=== PATIENT | female | born 1955 | race Caucasian/White ===

== ENCOUNTER 2019-12-18 07:57 | Outpatient (CLI) | payer MEDICARE, SELFPAY ==
--- NOTE | 2019-12-18 08:00 | MM_ITS ---
WS: [id number] SCREENING DIGITAL MAMMOGRAM WITH CAD HISTORY: screening mammogram COMPARISON: None available. Bilateral CC and MLO views submitted. Computer aided detection analyzed. Breast composition: There are scattered areas of fibroglandular density. Subcentimeter masses in the upper outer quadrant of the LEFT breast. Anterior mass measures 6 mm along the 3:00 axis. More analog device designer ior mass measures 5 mm and contains a central calcification near 2:00. No prior studies for compariso n. Palpable marker is placed along the medial inferior RIGHT breast which is probably secondary to under lying lipoma. No underlying mass. LEFT breast: Spot compression views (CC and MLO). True ML. Ultrasound to follow if abnormality jean pierre hitchcock. MM/[place] [id number] IMPRESSION: BI-RADS: 0-Incomplete: Need additional imaging evaluation FOLLOW UP: Need Additional Imaging
== END 2019-12-18 07:58 | disposition home or self-care (01) ==
LOC: RADSHAW 08:03
PROVIDERS: Family Provider Family Medicine; PCP Family Medicine; Visit Provider Family Medicine
DX: Z12.31 Encounter for screening mammogram for malignant neoplasm of breast (principal)
CPT/HCPCS: 77067

== ENCOUNTER 2020-01-10 10:47 | Outpatient (CLI) | payer MEDICARE, SELFPAY ==
--- NOTE | 2020-01-10 11:30 | MM_ITS ---
WS: [id number] BILATERAL DIAGNOSTIC DIGITAL MAMMOGRAM WITH CAD LEFT breast ultrasound, limited HISTORY: Additional imaging needed of asymmetries in the LEFT breast and a palpable nodule RIGHT [facility] COMPARISON: 6 12/18/2019 Technique: CC, MLO and ML views. Bilateral CC views and LEFT MLO. Breast composition: There are scattered areas of fibroglandular density. There is no underlying abno rmality in the RIGHT breast near 9:00. The asymmetries persist in the upper outer quadrant of the LEFT breast both anterior and middle depth . The anterior asymmetry is slightly irregular measuring 6 mm. Ill-defined asymmetry in the mid breas t may be dense fibroglandular tissue. Bilateral breast ultrasound. RIGHT breast: At 3:00 there is no underlying suspicious mass. There is a hyperechoic mass which corre sponds to the palpable abnormality measuring 2.7 x 2.8 x 1.0 cm most consistent with a benign lipoma. LEFT breast: LEFT breast 3:00, 2 cm from the nipple is a hypoechoic mass which is taller than wide wi th angular margins measuring 6 x 7 x 7 mm. No increased vascularity. There is an additional complex cyst at 2:00, one centimeters from the nipple with a maximum diameter of 3 mm. There are a few scattered hyperechoic nodules at 4:00 which are benign lipomas. 1. Ultrasound-guided biopsy recommended of the LEFT breast mass at 3:00, 2 cm from the nipple. 2. Benign lipoma RIGHT breast. MM/[place] [id number] IMPRESSION: BI-RADS: 4B-Suspicious: Intermediate FOLLOW UP: Biopsy Recommended
--- NOTE | 2020-01-10 12:00 | US_ITS ---
WS: [id number] BILATERAL DIAGNOSTIC DIGITAL MAMMOGRAM WITH CAD LEFT breast ultrasound, limited HISTORY: Additional imaging needed of asymmetries in the LEFT breast and a palpable nodule RIGHT [facility] COMPARISON: 6 12/18/2019 Technique: CC, MLO and ML views. Bilateral CC views and LEFT MLO. Breast composition: There are scattered areas of fibroglandular density. There is no underlying abno rmality in the RIGHT breast near 9:00. The asymmetries persist in the upper outer quadrant of the LEFT breast both anterior and middle depth . The anterior asymmetry is slightly irregular measuring 6 mm. Ill-defined asymmetry in the mid breas t may be dense fibroglandular tissue. Bilateral breast ultrasound. RIGHT breast: At 3:00 there is no underlying suspicious mass. There is a hyperechoic mass which corre sponds to the palpable abnormality measuring 2.7 x 2.8 x 1.0 cm most consistent with a benign lipoma. LEFT breast: LEFT breast 3:00, 2 cm from the nipple is a hypoechoic mass which is taller than wide wi th angular margins measuring 6 x 7 x 7 mm. No increased vascularity. There is an additional complex cyst at 2:00, one centimeters from the nipple with a maximum diameter of 3 mm. There are a few scattered hyperechoic nodules at 4:00 which are benign lipomas. 1. Ultrasound-guided biopsy recommended of the LEFT breast mass at 3:00, 2 cm from the nipple. 2. Benign lipoma RIGHT breast. US/US breast BI limited* [id number] IMPRESSION: BI-RADS: 4B-Suspicious: Intermediate FOLLOW UP: Biopsy Recommended
== END 2020-01-10 10:48 | disposition home or self-care (01) ==
LOC: RADSHAW 10:51
PROVIDERS: PCP Family Medicine; Visit Provider Family Medicine
DX: R92.8 Other abnormal and inconclusive findings on diagnostic imaging of breast (principal); N63.25 Unspecified lump in the left breast, overlapping quadrants; D17.79 Benign lipomatous neoplasm of other sites
CPT/HCPCS: 76642; 77065; 77066

== ENCOUNTER 2020-01-22 07:17 | Outpatient (CLI) | payer MEDICARE, SELFPAY ==
--- NOTE | 2020-01-22 08:00 | US_ITS ---
WS: [id number] ULTRASOUND-GUIDED LEFT BREAST BIOPSY HISTORY: LEFT breast lesion. COMPARISON: 01/10/2020 and 12/18/2019 Procedure, risks and complications are explained to the patient. Medications are reviewed. Consent is obtained. The mass in the LEFT breast is localized with ultrasound. Mass at 3:00, 2 cm from the nipple measures 6 x 7 x 7 mm. Skin is cleansed with ChloraPrep and anesthetized with 1% buffered lidocaine. Small de rmatome is made. Under sterile conditions mass is biopsied with a 14-gauge Achieve needle. Multiple c ore biopsies are performed. Material placed in formalin and sent to pathology for review. No complica tions encountered. Breast tissue marker (Bard ultrasound enhanced ribbon): Single. Patient left the radiology suite with no complications. [place] is [place] [facility] [place] [facility] concerns. US/[place] [id number] IMPRESSION: 1. Uncomplicated core needle biopsy LEFT breast. 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 Breast prognostic profile will be obtained. RECOMMENDATION: Surgical and oncologic evaluation.
--- NOTE | 2020-01-22 09:06 | PM.HP ---
Providers/Chief Complaint Primary Care Provider: Lexi Granda DO Chief Complaint: Abnormal mammogram of left breast History of Present Illness Shannon Henderson is a 64 year old female that presents today for breast biopsy of the left breast mass. Patient reports that she is feeling well, no recent illness. She stated that she follows with her primary care provider, no recent medication changes. Patient denies any fever or chills, no cough, shortness of breath, chest pain. She denies any exposure to anyone under investigation are positive for COVID-19. Patient denies being on any blood thinners or antiplatelet medications. Review of Systems Const: Denies: fever(s) or chills Eyes: Denies: change in vision Card: Denies: chest pain, palpitations or edema Resp: Denies: dyspnea, productive cough or hemoptysis GI: Denies: abdominal pain, nausea, vomiting, diarrhea, constipation, hematochezia or melena : Denies: dysuria or hematuria Musc: Denies: extremity pain or muscle cramps Skin/Breast: Denies: rash or new lesions Neuro: Denies: headache(s) or dizziness Endo: Denies: polyuria Medications/Allergies Home Medications Medication Instructions Recorded Confirmed Last Taken Type lisinopril 20 1 tab PO DAILY tab 08/17/19 11/20/19 Unknown History mg-hydrochlorothiazide 25 mg tablet omega-3 fatty acids 1,000 mg 2,000 mg PO BID 08/17/19 11/20/19 Unknown History capsule potassium chloride 10 mEq 20 meq PO BID tab 08/17/19 11/20/19 Unknown History tablet,extended release celecoxib 200 mg capsule 200 mg PO DAILY #90 cap 11/13/19 11/20/19 Unknown Rx furosemide 40 mg tablet 40 mg PO BID #180 tab 11/13/19 11/20/19 Unknown Rx lorazepam 0.5 mg tablet 0.5 mg PO BID PRN #180 tab 11/13/19 11/20/19 Unknown Rx metformin 1,000 mg tablet,extended 1,000 mg PO BID #180 tab 11/13/19 11/20/19 Unknown Rx release 24hr sitagliptin 100 mg tablet 100 mg PO DAILY #90 tab 11/20/19 11/20/19 Unknown Rx atorvastatin 20 mg tablet 20 mg PO DAILY #30 tab 12/24/19 Unknown Rx paroxetine HCl 20 mg tablet 20 mg PO DAILY #30 tab 12/24/19 Unknown Rx Allergies Allergy/AdvReac Type Severity Reaction Status Date / Time No Known Allergies Allergy Verified 09/27/19 09:04 PFSH Acute PFSH: Medical History Anxiety Anxiety and depression Controlled type 2 diabetes mellitus, without long-term current use of insulin DVT of lower extremity (deep venous thrombosis) Dyslipidemia Enrolled in chronic care management Essential (primary) hypertension GERD (gastroesophageal reflux disease) History of colon polyps Osteoarthritis Surgical History H/O carpal tunnel repair H/O: hysterectomy History of cholecystectomy History of colonoscopy with polypectomy (~2017) Family History Sister Cancer colon cancer Mother Diabetes Hypertension Father COPD (chronic obstructive pulmonary disease) Denies family history of Anesthesia complication Bleeding disorder Social History Smoking and tobacco status: never smoked Second hand smoke exposure: No Alcohol intake: current Alcohol intake frequency: holidays/special occasions only Desire information about alcohol rehabilitation?: No Desire information about substance/drug rehabilitation?: No Adopted: No Caregiver/support person: Yes Lives independently: Yes Household members: spouse Housing: House Marital status: Highest education level completed: High School Graduate service: No Current occupational status: retired Current occupational exposures/hazards: No Pets and animals: No History of recent travel: No Sexually active: No Current gender identity: Female Lacey/Restorationist: Alevism Special lacey needs: No Agree to transfusion: No Financial difficulty paying for basics: Decline to Answer Physical Exam Const: COMMON NORMALS: patient oriented x3 and alert GENERAL APPEARANCE: cooperative ORIENTATION/CONSCIOUSNESS: Yes awake, Yes oriented to person, Yes oriented to place and Yes oriented to time HENMT: COMMON NORMALS: normocephalic and atraumatic HEAD & SCALP: normocephalic and atraumatic Eye: COMMON NORMALS: Equal, round and reactive pupils present PUPIL: Yes Equal, round and reactive pupils present Neck/C-Spine: COMMON NORMALS: supple GENERAL: Yes normal visual inspection Resp: COMMON NORMALS: normal respiratory effort and clear to auscultation bilaterally EFFORT & INSPECTION: Yes able to speak in complete sentences AUSCULTATION: clear to auscultation bilaterally, no rhonchi and no wheezes Cardio: COMMON NORMALS: regular rate, regular rhythm and No murmurs present (Cardio) RATE: regular rate RHYTHM: regular rhythm GI: COMMON NORMALS: Soft to palpation and non-tender INSPECTION: No abdominal distension AUSCULTATION: Yes normoactive bowel sounds PALPATION: Yes Soft to palpation OTHER: obese Extremity: COMMON NORMALS: no clubbing, cyanosis or edema and no calf tenderness Neuro: COMMON NORMALS: patient oriented x3, CN's II-XII intact bilaterally, moves all extremities and no focal motor deficits SENSORIUM/ORIENTATION: Yes alert, Yes oriented to person, Yes oriented to place and Yes oriented to time SPEECH: speech normal Psych: COMMON NORMALS: mental status grossly normal and cooperative Skin: COMMON NORMALS: no rashes or lesions noted GENERAL SKIN EXAM: no rashes or lesions noted A&P Assessment and plan (1) Breast mass: Patient with breast ultrasound performed on 01/10/2020 which shows 1. Ultrasound-guided biopsy recommended of the LEFT breast mass at 3:00, 2 cm from the nipple. 2. Benign lipoma RIGHT breast. Plan for ultrasound-guided biopsy of the left breast today with Dr. Arceo. Status: Acute Attestations Medical Necessity Statement*: Patient requires ultrasound guided biopsy of the left breast due to abnormal breast ultrasound and mammogram Coding Level of Care Code Acute Log Turner for Aisha Rubi Diagnoses Breast mass N63.0
[2020-02-12 16:06] LABS: Miscellaneous Test See Scanned Lab Rpt
== END 2020-01-22 07:18 | disposition home or self-care (01) ==
LOC: RAD 07:18
PROVIDERS: PCP Family Medicine; Visit Provider Family Medicine
DX: N64.89 Other specified disorders of breast (principal); C50.812 Malignant neoplasm of overlapping sites of left female breast
CPT/HCPCS: 12345; 19083; 88305; J2001

== ENCOUNTER 2020-02-05 07:06 | Day surgery (SDC) | payer MEDICARE, SELFPAY ==
[2020-02-04 13:59] VITALS: BMI 37.1
[2020-02-05] VITALS (8 sets, daily range): BP systolic 97–131; BP diastolic 50–76; PULSE 63–87; RESP 15–20; TEMP 36.4–36.7; O2SAT 91–96
--- NOTE | 2020-02-05 | US_ITS ---
WS: [id number] ULTRASOUND-GUIDED LEFT BREAST NEEDLE LOCALIZATION HISTORY: LEFT BREAST MASS Procedure, risks and complications were explained to the patient. Consent is obtained. Skin is cleansed with ChloraPrep and anesthetized with 1% buffered lidocaine. Needle and guidewire pl aced to the area of concern with no complications. Ultrasound guidance performed during the needle lo calization. Guidewire is left within the lesion. Guidewire secured and no complications encountered. Patient is being transported to the OR suite. Specimen radiograph is also reviewed. Breast mass is present. 1. Uncomplicated wire localization of the mass at 3:00 LEFT breast. 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 T umor approaches within 1 mm of the superior margin. Please refer to the pathology report for addition al details. RECOMMENDATIONS: Follow-up with surgery and oncology. US/US breast surgical specimen IMPRESSION:
[2020-02-05] MEDS: sodium chloride 0.9% 1,000 ML 30 ML IV (07:32)
--- NOTE | 2020-02-05 07:53 | P.ANESASSM_ITS ---
Pre-Anesthetic Assessment Pre-Anesthetic Assessment: Height/Weight: Height 1.68 m Weight 104.326 kg Temp Pulse Resp BP Pulse Ox 97.5 F L 63 18 131/76 95 02/05/20 07:23 02/05/20 07:23 02/05/20 07:23 02/05/20 07:23 02/05/20 07:23 Preop Diagnosis: Left breast cancer Proposed Procedure: Operation Date: 02/05/20 10:05 Proposed Procedures p Sentinal Lymph Node Biopsy(Left) - Joey Vizcaino MD s Lumpectomy 85155 [id number] C50.919(Left) - Joey Vizcaino MD Familial anesthetic complications: None Was Beta Anjana taken within 24 hours: N/A Last intake: Intake Last Liquid Date 02/04/20 Last Liquid Time 18:00 Last Solid Date 02/04/20 Last Solid Time 18:00 Social: Social History: No alcohol and No tobacco Exam: Pre-Anes Outpt Exam: alert, oriented x 3, clear to auscultation bilaterally and regular rate & rhythm Airway: Cervical ROM: WNL MP: 3 Additional comments: missing Pulmonary: Pulmonary: None reported CV/HEM: CV/HEM: HTN : : None reported Hepatic: Hepatic: None reported Metabolic: Metabolic: DM, Hyperlipidemia and Morbid obesity Musc/skel: Musc/skel: None reported Neuropsych: Neuropsych: None reported Anesthetic Plan: ASA status: 2 Anesthesia: MAC Risk of > 500 ml blood loss (7ml/kg in children): No Meds/Allergies Current Medications: Current Medications Generic Name Dose Route Start Last Admin Trade Name Freq PRN Reason Stop Dose Admin Sodium Chloride 1,000 mls @ 30 ml s/hr 02/05/20 06:45 02/05/20 07:32 Sodium Chloride 0.9% IV 02/06/20 06:44 30 mls/hr .Q24H RENEE Administration PFSH Anesthesia PFSH: Medical History Anxiety Anxiety and depression Controlled type 2 diabetes mellitus, without long-term current use of insulin DVT of lower extremity (deep venous thrombosis) Dyslipidemia Enrolled in chronic care management Essential (primary) hypertension GERD (gastroesophageal reflux disease) History of colon polyps Osteoarthritis Surgical History H/O carpal tunnel repair H/O: hysterectomy History of cholecystectomy History of colonoscopy with polypectomy (~2017) Family History Sister Cancer colon cancer Mother Diabetes Hypertension Father COPD (chronic obstructive pulmonary disease) Denies family history of Anesthesia complication Bleeding disorder Social History Smoking and tobacco status: never smoked Second hand smoke exposure: No Alcohol intake: current Alcohol intake frequency: holidays/special occasions only Desire information about alcohol rehabilitation?: No Desire information about substance/drug rehabilitation?: No Adopted: No Caregiver/support person: Yes Lives independently: Yes Household members: spouse Housing: House Marital status: Highest education level completed: High School Graduate service: No Current occupational status: retired Current occupational exposures/hazards: No Pets and animals: No History of recent travel: No Sexually active: No Current gender identity: Female Lacey/Oriental Orthodox: Adventism Special lacey needs: No Agree to transfusion: No Financial difficulty paying for basics: Decline to Answer Data Anesthesia Cardiac Studies: No Data to Display
--- NOTE | 2020-02-05 08:00 | US_ITS ---
WS: [id number] ULTRASOUND-GUIDED LEFT BREAST NEEDLE LOCALIZATION HISTORY: LEFT BREAST MASS Procedure, risks and complications were explained to the patient. Consent is obtained. Skin is cleansed with ChloraPrep and anesthetized with 1% buffered lidocaine. Needle and guidewire pl aced to the area of concern with no complications. Ultrasound guidance performed during the needle lo calization. Guidewire is left within the lesion. Guidewire secured and no complications encountered. Patient is being transported to the OR suite. Specimen radiograph is also reviewed. Breast mass is present. 1. Uncomplicated wire localization of the mass at 3:00 LEFT breast. 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 T umor approaches within 1 mm of the superior margin. Please refer to the pathology report for addition al details. RECOMMENDATIONS: Follow-up with surgery and oncology. US/[place] [id number] IMPRESSION:
--- NOTE | 2020-02-05 08:37 | NM_ITS ---
WS: [id number] NUCLEAR MEDICINE SENTINEL LYMPH NODE IMAGING HISTORY: LEFT breast neoplasm. COMPARISON: None available. TECHNIQUE: The patient was injected with 1.01 mCi of Technetium 99 ultra filtered sulfur colloid. Inj ection is intradermal in a periareolar location. Four aliquots are used. NM/NM sentinel node inject [id number] IMPRESSION: Uncomplicated LEFT breast sentinel node injection.
--- NOTE | 2020-02-05 09:22 | W.PM.OPSUD ---
Surgery/Procedure H&P Update DATE OF PROCEDURE: February 05, 2020 DATE H&P PERFORMED: 01/31/20 H&P UPDATE INFORMATION: I have reviewed H&P completed within last 30 days, I have examined patient prior to procedure and No changes to prior documentation PREOP DIAGNOSIS: Left breast cancer PLANNED PROCEDURE: Operation Date: 02/05/20 10:05 Proposed Procedures p Sentinal Lymph Node Biopsy(Left) - Joey Vizcaino MD s Lumpectomy [id number] C50.919(Left) - Joey Vizcaino MD
[2020-02-05] MEDS: lidocaine 1% INJ 20 mL INJECTION (10:47)
[2020-02-05] MEDS: isosulfan blue 10 mg/mL SDV 5mL SUBCUT (10:51)
--- NOTE | 2020-02-05 12:12 | SUR.PHASEI ---
1200 PATIENT TO PACU. ORAL AIRWAY IN PLACE. SPO2 94% ON SIMPLE MASK AT 8L. DRESSING TO LEFT BREAST, CDI WITH SURGICAL BRA IN PLACE.
--- NOTE | 2020-02-05 12:12 | P.OP_ITS ---
Operative Report Date of procedure: February 05, 2020 Pre-op Diagnosis: Invasive ductal adenocarcinoma left breast 2 o'clock position Post-op diagnosis: same Procedure Done: Wire localized partial mastectomy left breast Injection of 1% Lymphazurin for sentinel lymph node mapping [place] lymph node biopsy Specimens removed/disposition: Left breast mass 2 o'clock position, superior, inferior, posterior and medial shave margins, outer edge inked Left axilla sentinel lymph node biopsy Surgeon: Joey Vizcaino Anesthesia: General Estimated blood loss (mL): 25 Condition: stable Disposition: PACU Procedure: The wire localization of the mammographic abnormality was performed by the radiologist under ultrasound guidance and the patient was transferred to operating room and placed under MAC after IV antibiotic had been administered. The left breast was prepped and draped in a manner . A curvilinear incision was made over the areolar margin at 2'o clock position inferior to the marking over the mammographic abnormality, subcutaneous tissue was divided and skin flaps were raised medially and laterally. The localization wire was grasped through the incision and using electrocautery the wire along with the breast tissue c ontaining mammographic abnormality was dissected free from the surrounding tissue. Using 2-0 silk suture, short stitch was placed superiorly and a long stitch was placed laterally.1 cm shave margins were then obtained from the superior, inferior, medial and posterior aspect of the lumpectomy cavity and the outer edge was inked. The breast tissue was mobilized from the superior and inferior aspect of the lumpectomy cavity to close the defect. A technetium sulfur colloid had been injected previously by the radiologist in the periareolar area. 5 mL of 1% Lymphazurin was injected in the subareolar location. The breast was massaged for 5 minutes and a 2 cm incision was made in the left axilla at the edge of the hairline. The subcutaneous tissue and clavipectoral fascia was divided with electrocautery and gentle dissection revealed lymphatics with stained lymph nodes with significant radioactivity. Using electrocautery the lymph nodes were dissected free. Examination of the axilla did not reveal any other radioactive lymph nodes. The clavipectoral and subcutaneous tissue was approximated using running 3-0 Vicryl suture and skin was closed using running subcuticular 4-0 Monocryl suture and Dermabond. The wounds were irrigated with saline, hemostasis ensured with electrocautery and subcutaneous tissues approximated using 3-0 running Vicryl suture and skin was closed using running subcuticular 4-0 Monocryl sutures and Dermabond. 30 cc of .5% Marcaine was infiltrated at the 2 sites. Fluffs were used for pressure dressing. Patient was transferred to recovery room and stable condition The lumpectomy specimens were sent to mammography to obtain radiological confirmation of complete excision of the mammographic abnormality.
--- NOTE | 2020-02-05 12:12 | SUR.PHASEI ---
1210 ORAL AIRWAY REMOVED AT THIS TIME. SPO2 95% ON SIMPLE MASK AT 8L.
--- NOTE | 2020-02-05 12:33 | SUR.PHASEI ---
1230 TO OPS. DENIES PAIN. TOLERATING ICE CHIPS. DRESSING TO LEFT BREAST, CDI WITH SURGICAL/SUPPORT BRA IN PLACE.
[2020-02-05] MEDS: HYDROcodone-acetaminophen 5-325 mg Tablet 1 TAB PO (12:55)
== END 2020-02-05 13:13 | disposition home or self-care (01) ==
PROVIDERS: PCP Family Medicine; Visit Provider Surgery
PROC: (CPT 19301; principal; 2020-02-05 10:05)
PROC: (CPT 19301; 2020-02-05 10:05)
DX: C50.412 Malignant neoplasm of upper-outer quadrant of left female breast (principal); F41.9 Anxiety disorder, unspecified; F32.9 Major depressive disorder, single episode, unspecified; E11.9 Type 2 diabetes mellitus without complications; Z86.718 Personal history of other venous thrombosis and embolism; I10 Essential (primary) hypertension; E78.5 Hyperlipidemia, unspecified; E66.01 Morbid (severe) obesity due to excess calories; Z68.37 Body mass index [BMI] 37.0-37.9, adult; M19.90 Unspecified osteoarthritis, unspecified site
CPT/HCPCS: 19301; 38525; 12345; 19285; 38792; 88305; A9541; J1100; J2001; J2405; J2704; J3010; J3490; J7030; Q9968

== ENCOUNTER 2020-02-11 11:41 | Outpatient (CLI) | payer MEDICARE, SELFPAY ==
--- NOTE | 2020-02-11 14:02 | ONC CON_ITS ---
Dr. Chapman New Patient Note Patient: Shannon Henderson Unit #: [id number]: 1955 Dicatated By: Gucci Chapman M.D.Date of Visit: Feb 11, 2020 Onc MED New Patient/Consult Referring Physician: Dr. DEANDRE LANZA M.D. History of Present Illness: Ms. Shannon Henderson, is a 64-year-old female who underwent mammogram for right breast palpable mass on December 18, 2019 and the impression was on the right side medial inferior breast mass was probably due to lipoma as no underlying mass was identified but there was incidental finding in the left breast there was a subcentimeter mass in the upper quadrant of left breast anterior mass measures 6 mm in the posterior mass measured 5 mm and contains central calcification. Patient underwent repeat mammogram/ultrasound on January 10, 2020 which confirmed benign lipoma right side and in left breast at 3 o'clock position, 2 cm from nipple is a hypoechoic mass measuring 6 x 7 x 7 mm subsequently patient underwent ultrasound-guided needle biopsy on January 23, 2020 which confirmed invasive carcinoma ER HI positive HER-2/neeraj negative with a Ki-67 14%. Patient was referred to surgery and underwent left breast lumpectomy on February 05, 2020 which showed residual tumor size 0.9 cm tumor is free of margin but approaches within 1 mm of superior margin. pT1b 3 left axillary sentinel lymph nodes were removed and showed no evidence of metastatic disease pN0 Patient tolerated procedure well Patient denies any specific complaints with denies any fever chills denies any nipple discharge denies any tenderness in left breast. Has follow-up appointment with Dr. Lanza today. Past medical history significant for anxiety/depression, controlled type 2 diabetes mellitus, DVT of lower extremity. Dyslipidemia. Essential hypertension. Gastroesophageal reflux disease. Osteoarthritis. Status post colonoscopy with polypectomy in 2017., History of hysterectomy. No history of smoking. Occasional alcohol use. Patient never had abnormal mammogram before. But last year she missed her follow-up mammogram, family history positive for paternal aunt with history of breast cancer. History of oral contraceptive for a few years. Patient had 3 pregnancies, 3 live births, 2 boys and 1 girl. No history of breast-feeding. Past Medical History: Ms. Henderson's medical history consists of anxiety, depression, dyslipidemia, gastroesophageal reflux disease, history of colon polyps, history of dvt, hypertension, osteoarthritis, and type II diabetes. Past Surgical History: Ms. Henderson's surgical/procedural history consists of breast biopsy, carpal tunnel release, cholecystectomy, hysterectomy, left breast lumpectomy, and colonoscopy in 2017. Medications: Atorvastatin Calcium 1 Tablet (of 20 mg) Oral daily, Celecoxib 1 Capsule (of 200 mg) Oral daily, Docusate Sodium 1 Tablet (of 100 mg) Oral b.i.d., Furosemide 1 Tablet (of 20 mg) Oral b.i.d., Januvia 1 Tablet (of 100 mg) Oral daily, Klor-Con 10 1 Tablet (of 10 meq) Tablet, controlled release Oral daily, Lisinopril-hydroCHLOROthiazide 1 Tablet (of 20-25 mg) Oral daily, LORazepam 1 Tablet (of 0.5 mg) Oral b.i.d., Meloxicam 1 Tablet (of 15 mg) Oral daily, metFORMIN HCl 1 Tablet (of 1000 mg) Oral b.i.d., Ondansetron HCl 1 Tablet (of 4 mg) Oral q 6 hours, PARoxetine HCl 1 Tablet (of 20 mg) Oral daily Allergies: No Known Allergies. Social History: Ms. Henderson is and she is an unknown. Ms. Henderson has never smoked. She has no history of drinking. Family History: There is no documented family history. Review Of Symptoms: Review of Systems is not available for this patient. Vital Signs: Performed on Feb 11, 2020 12:57: 0, 38.38 (HIGH), 2.05 sq.m, 64.00 in, 94 % (LOW), 70 /min, 24 /min, 132/73 mm(hg), 98.6 F, and 223.6 lbs (HIGH). Performance Status: 0 - Fully active, able to carry on all predisease activities without restrictions. (ECOG) Physical Examination: ENMT - No mouth sores, no thrush, no jaundice, Respiratory - Lungs are clear, Cardiovascular - Regular rate and rhythm of heart, Abdomen - Soft, bowel sounds present, Extremities - No edema or rash. Lab/Imaging: Most recent lab results are not available for this patient. 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, involving left breast status post ultrasound-guided biopsy done on January 23, 2020 followed by left breast lumpectomy with sentinel lymph node biopsy final pathology report showed 0.9 cm invasive tumor with clear margins but approaches within 1 mm of superior margin, no lymphovascular invasion seen pT1b, 0 out of 3 sentinel lymph node showed metastatic disease pN0 Stage IA ER 95% positive, HI 99% positive, HER-2/neeraj negative, Ki-67 14% H History of lower extremity DVT Dyslipidemia Hypertension Type 2 diabetes mellitus Anxiety/depression Plan: Discussed with patient regarding her disease status and treatment options, patient has early stage left breast cancer Stage IA e.g. subcentimeter invasive tumor with negative sentinel lymph nodes, ER HI positive, HER-2/neeraj negative. But high Ki-67 score At this point, will consider prognostic molecular profiling with Oncotype DX score, if it shows low risk then will continue with Arimidex 1 mg p.o. daily for 5 years along with vitamin D and calcium, all the side effects including but not limited to hot flashes, musculoskeletal pain, nausea, bone demineralization, were mentioned further teaching done by chemotherapy nurse. She was given prescription for Arimidex 1 mg p.o. daily for 5 years along with vitamin D/calcium supplement On the other hand, if Oncotype DX score shows high risk ,then I will discuss with her regarding role of adjuvant chemotherapy followed by adjuvant hormonal therapy for 5 years. We will also refer her to radiation oncology for evaluation for postlumpectomy radiation therapy to the left breast Patient return to clinic in 1 month with CBC CMP and to discuss her Oncotype DX score results Signed By: Gucci Chapman M.D. <<Signature on File>>
== END 2020-02-11 11:42 | disposition home or self-care (01) ==
LOC: ONCMED 11:48
PROVIDERS: PCP Family Medicine; Referring Provider Surgery; Visit Provider Internal Medicine Hematology & Oncology
DX: C50.812 Malignant neoplasm of overlapping sites of left female breast (principal); D17.1 Benign lipomatous neoplasm of skin and subcutaneous tissue of trunk; Z17.0 Estrogen receptor positive status [ER+]; E78.5 Hyperlipidemia, unspecified; I10 Essential (primary) hypertension; E11.9 Type 2 diabetes mellitus without complications; F41.8 Other specified anxiety disorders; Z86.718 Personal history of other venous thrombosis and embolism
CPT/HCPCS: 99203

== ENCOUNTER 2020-03-03 12:57 | Outpatient (CLI) | payer MEDICARE, SELFPAY ==
[2020-03-03 13:37] LABS: Basophils # 0.1 10^3/uL (0.0-0.1); Basophils % 0.6 %; Eosinophils # 0.3 10^3/uL (0.0-0.8); Eosinophils % 2.4 %; Hematocrit 46.1 % (37.0-47.0); Hemoglobin 14.3 g/dL (11.5-15.3); Lymphocytes # 5.1 10^3/uL (0.8-4.8); Lymphocytes % 46.6 %; Mean Corpuscular Hemoglobin 27.8 pg (28.0-34.0); Mean Corpuscular Volume 89.5 fL (81-99); Mean Platelet Volume 9.7 fL (7.4-10.4); Monocytes # 0.8 10^3/uL (0.2-0.9); Monocytes % 6.9 %; Neutrophils # 4.77 10^3/uL (1.8-7.7); Neutrophils % 43.3 %; Nucleated Red Blood Cells % 0 %; Platelet Count 408 10^3/cmm (130-400); Red Blood Count 5.15 10^6/uL (4.1-5.3); Red Cell Distribution Width 14.3 % (12.1-15.1)
[2020-03-03 13:46] LABS: Alanine Aminotransferase 39 U/L (0-33); Albumin Level 4.9 g/dL (3.5-5.2); Alkaline Phosphatase 83 IU/L (35-105); Anion Gap 16.3 (5-19); Aspartate Amino Transferase 29 U/L (0-32); Blood Urea Nitrogen 19 mg/dL (8-23); Calcium 11.2 mg/dL (8.5-10.5); Carbon Dioxide 29 mmol/L (22-29); Chloride 95 mmol/L (98-107); Globulin 3.5 g/dL (1.3-4.6); Glomerular Filtration Rate 55.8 mL/min (90-130); Glucose 136 mg/dL (65-115); Osmolality Calculated 283 mOsm/kg (285-295); Potassium 3.3 mmol/L (3.5-5.1); Sodium 137 mmol/L (136-145); Total Bilirubin 0.4 mg/dL (0.15-1.2); Total Protein 8.4 g/dL (6.6-8.7)
--- NOTE | 2020-03-03 14:55 | ONC FU_ITS ---
Dr. Chapman follow up note Patient: Shannon Henderson Unit #: [id number]: 1955 Dicatated By: Gucci Chapman M.D.Date of Visit:Mar 03, 2020 Onc Med Follow-up/Prog Note History of Present Illness: Ms. Shannon Henderson, is a 64-year-old female who underwent mammogram for right breast palpable mass on December 18, 2019 and the impression was on the right side medial inferior breast mass was probably due to lipoma as no underlying mass was identified but there was incidental finding in the left breast there was a subcentimeter mass in the upper quadrant of left breast anterior mass measures 6 mm in the posterior mass measured 5 mm and contains central calcification. Patient underwent repeat mammogram/ultrasound on January 10, 2020 which confirmed benign lipoma right side and in left breast at 3 o'clock position, 2 cm from nipple is a hypoechoic mass measuring 6 x 7 x 7 mm subsequently patient underwent ultrasound-guided needle biopsy on January 23, 2020 which confirmed invasive carcinoma ER NC positive HER-2/neeraj negative with a Ki-67 14%. Patient was referred to surgery and underwent left breast lumpectomy on February 05, 2020 which showed residual tumor size 0.9 cm tumor is free of margin but approaches within 1 mm of superior margin. pT1b 3 left axillary sentinel lymph nodes were removed and showed no evidence of metastatic disease pN0 Patient tolerated procedure well Patient denies any specific complaints with denies any fever chills denies any nipple discharge denies any tenderness in left breast. Has follow-up appointment with Dr. Vizcaino today. Past medical history significant for anxiety/depression, controlled type 2 diabetes mellitus, DVT of lower extremity. Dyslipidemia. Essential hypertension. Gastroesophageal reflux disease. Osteoarthritis. Status post colonoscopy with polypectomy in 2017., History of hysterectomy. No history of smoking. Occasional alcohol use. Patient never had abnormal mammogram before. But last year she missed her follow-up mammogram, family history positive for paternal aunt with history of breast cancer. History of oral contraceptive for a few years. Patient had 3 pregnancies, 3 live births, 2 boys and 1 girl. No history of breast-feeding. Came for follow-up, denies any specific complaints, except persistent left breast wound infection, now being treated by Dr. Vizcaino with antibiotics otherwise no fever chills, no nausea or vomiting, no diarrhea constipation, occasionally hot flashes and persistent mild arthritis in both hands but no worsening, tolerating Arimidex well otherwise. Her Oncotype DX was ordered earlier but slight with a minimum invasive tumor was sent by mistake so it was not done, as per discussion with pathology today other slides with sufficient tumor has been sent now for Oncotype DX testing. Patient has seen radiation oncology but radiation is awaiting surgical wound healing before starting radiation therapy. Medications: Arimidex 1 Tablet (of 1 mg) Oral daily, Atorvastatin Calcium 1 Tablet (of 20 mg) Oral daily, Celecoxib 1 Capsule (of 200 mg) Oral daily, Cephalexin 1 Capsule (of 500 mg) Oral daily, Docusate Sodium 1 Tablet (of 100 mg) Oral b.i.d., Furosemide 1 Tablet (of 20 mg) Oral b.i.d., Januvia 1 Tablet (of 100 mg) Oral daily, Klor-Con 10 1 Tablet (of 10 meq) Tablet, controlled release Oral daily, Lisinopril-hydroCHLOROthiazide 1 Tablet (of 20-25 mg) Oral daily, LORazepam 1 Tablet (of 0.5 mg) Oral b.i.d., Meloxicam 1 Tablet (of 15 mg) Oral daily, metFORMIN HCl 1 Tablet (of 1000 mg) Oral b.i.d., Ondansetron HCl 1 Tablet (of 4 mg) Oral q 6 hours, PARoxetine HCl 1 Tablet (of 20 mg) Oral daily Allergies: No Known Allergies. Review of Systems: Constitutional - Appetite is good and weight is stable. No fever, no hot flashes. Energy level is fair. Positive for occasional night sweats, ENMT - No sinus congestion/drainage. No mouth sores. No sore throat or difficulty swallowing, Hematologic/Lymphatic - No abnormal bruising or bleeding, Respiratory - Positive for shortness of breath. No cough. No pleuritic pain or hemoptysis, Cardiovascular - No angina pain. No palpitations, Gastrointestinal - No nausea or vomiting. No heartburn or acid reflux. No diarrhea. Positive for constipation. No blood in the stool or black stools, Genitourinary (F) - No dysuria or hematuria. No urinary frequency. No urgency. Positive for incontinence, Musculoskeletal - No joint or bone pain, Neurologic - No headache. Positive for dizziness. No numbness or tingling. No other focal neurologic symptoms, Psychiatric - Positive for depression and anxiety. Vital Signs: Performed on Mar 03, 2020 14:14 Height - 64.00 in Weight - 231.0 lbs (LOW) BSA - 2.08 sq.m BMI - 39.65 (HIGH) Temperature - 98.5 F Pulse - 82 /min Respiration - 24 /min BP - 144/79 mm(hg) (HIGH) O2 Sat - 97 % Pain - 0 Performance Status: 0 - Fully active, able to carry on all predisease activities without restrictions. (ECOG) Physical Examination: Respiratory - Lungs are clear, Cardiovascular - Regular rate and rhythm of heart, Gastrointestinal - Soft, bowel sounds present, Extremities - No visible edema. Lab/Imaging: Most recent lab results are not available for this patient. 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, involving left breast status post ultrasound-guided biopsy done on January 23, 2020 followed by left breast lumpectomy with sentinel lymph node biopsy final pathology report showed 0.9 cm invasive tumor with clear margins but approaches within 1 mm of superior margin, no lymphovascular invasion seen pT1b, 0 out of 3 sentinel lymph node showed metastatic disease pN0 ER 95% positive, NC 99% positive, HER-2/neeraj negative, Ki-67 14% H History of lower extremity DVT Dyslipidemia Hypertension Type 2 diabetes mellitus Anxiety/depression Plan: Discussed with patient regarding her labs white blood count 11.0 hemoglobin 14.3 crit 46.1 platelets 408,000 CMP within normal limits except calcium 11.2 Clinically, patient is doing reasonably well tolerating Arimidex/vitamin D/calcium well but with expected side effects, e.g. occasional hot flashes no follow-up labs shows hypercalcemia, we will hold her calcium/vitamin D supplements and monitor labs Discussed with patient regarding Oncotype DX testing status, now slides with sufficient invasive tumor has been sent for testing, hopefully will have report back in next couple of weeks. Patient return to clinic in 2 weeks for discussion in the meantime continue with Arimidex Patient has follow-up with Dr. Vizcaino, surgeon regarding her surgical wound infection, on coming Monday, in the meantime she is on oral antibiotics. And patient was advised to stay in touch with radiation oncology. Signed By: Gucci Chapman M.D. <<Signature on File>>
== END 2020-03-03 12:58 | disposition home or self-care (01) ==
LOC: ONCMED 13:05
PROVIDERS: PCP Family Medicine; Visit Provider Internal Medicine Hematology & Oncology
DX: C50.812 Malignant neoplasm of overlapping sites of left female breast (principal); E78.5 Hyperlipidemia, unspecified; I10 Essential (primary) hypertension; E11.9 Type 2 diabetes mellitus without complications; F41.8 Other specified anxiety disorders; S21.002D Unspecified open wound of left breast, subsequent encounter; T81.89XD Other complications of procedures, not elsewhere classified, subsequent encounter; T81.49XD Infection following a procedure, other surgical site, subsequent encounter; Y83.8 Other surgical procedures as the cause of abnormal reaction of the patient, or of later complication, without mention of misadventure at the time of the procedure; Z79.811 Long term (current) use of aromatase inhibitors; Z17.0 Estrogen receptor positive status [ER+]; Z79.84 Long term (current) use of oral hypoglycemic drugs
CPT/HCPCS: 36415; 80053; 85025; 99214; G0277

== ENCOUNTER 2020-03-23 12:27 | Outpatient (CLI) | payer MEDICARE, SELFPAY ==
[2020-03-23 12:51] LABS: Basophils # 0.1 10^3/uL (0.0-0.1); Basophils % 0.8 %; Eosinophils # 0.2 10^3/uL (0.0-0.8); Eosinophils % 2.3 %; Hematocrit 43.3 % (37.0-47.0); Hemoglobin 13.1 g/dL (11.5-15.3); Lymphocytes % 45.9 %; Mean Corpuscular HGB Conc 30.3 g/dL (30.0-36.0); Mean Corpuscular Hemoglobin 28.1 pg (28.0-34.0); Mean Corpuscular Volume 92.7 fL (81-99); Mean Platelet Volume 9.7 fL (7.4-10.4); Monocytes # 0.5 10^3/uL (0.2-0.9); Neutrophils % 44.8 %; Nucleated Red Blood Cells % 0 %; Platelet Count 322 10^3/cmm (130-400); Red Blood Count 4.67 10^6/uL (4.1-5.3); Red Cell Distribution Width 14.3 % (12.1-15.1); White Blood Count 8.7 10^3/uL (4.0-10.0)
[2020-03-23 13:08] LABS: Alanine Aminotransferase 30 U/L (0-33); Albumin Level 4.5 g/dL (3.5-5.2); Alkaline Phosphatase 55 IU/L (35-105); Anion Gap 14.5 (5-19); Aspartate Amino Transferase 18 U/L (0-32); Blood Urea Nitrogen 20 mg/dL (8-23); Calcium 10.1 mg/dL (8.5-10.5); Carbon Dioxide 26 mmol/L (22-29); Chloride 101 mmol/L (98-107); Glucose 161 mg/dL (65-115); Osmolality Calculated 286 mOsm/kg (285-295); Potassium 3.5 mmol/L (3.5-5.1); Sodium 138 mmol/L (136-145); Total Bilirubin 0.4 mg/dL (0.15-1.2); Total Protein 7.5 g/dL (6.6-8.7)
--- NOTE | 2020-03-23 14:45 | ONCRAD EPV_ITS ---
Radiation Oncology Established Patient Visit Patient: Shannon Henderson [id number] : 1955 Age: 64 Sex: Female Dictated by: Dr. Zander Almeida Date of Service: 03/23/2020 Referring Physician(s) : Dr. Chapman Diagnosis: pT1b pN0 (0/3 LNs) M0 Grade 2 moderately differentiated ductal carcinoma with micropapillary pattern of the left breast at the 3 o'clock position, ER +95%, MO +99%, HER-2/neeraj negative, Ki-67 14%. She is status post lumpectomy and sentinel lymph node dissection (02/05/2020) with widely negative postsurgical margins, 0/3 involved lymph nodes, and the primary measured 0.9 cm. Oncotype DX testing revealed an insufficient amount of tissue to evaluate. The patient was offered a second opinion from a tertiary center by Dr Chapman, but the patient reportedly declined and shared that she would not accept chemotherapy even if it was offered. Therefore, the plan is for 42.56 Gy in 16 fractions to the left breast followed by a boost of 10 Gy in 4 fractions. Simulation will begin in two weeks to allow for further skin healing. The patient initiated Arimidex on 02/17/2020. Current History: The patient reports that she is healing well and she has no complaints with respect to her breast. She reports that she recently saw her surgeon who was also pleased with her wound healing. Current Medications: Arimidex, arimidex, atorvastatin Calcium, celecoxib, cephalexin, docusate Sodium, furosemide, januvia, klor-Con 10, lisinopril-hydroCHLOROthiazide, lORazepam, meloxicam, metFORMIN HCl, ondansetron HCl, pARoxetine HCl. Allergies: No Known Allergies Current Complaints / Review of Systems: Constitutional - Complains of fatigue which is mild and manageable and night sweats. Denies lack of appetite and fever. Cardiovascular - Denies chest pain and palpitations. Respiratory - Denies cough. Gastrointestinal - Denies constipation, diarrhea, nausea and vomiting. Genitourinary (F) - Denies dysuria, hematuria, incontinence, nocturia and urgency. Musculoskeletal - Complains of joint pain in her left hand which she states has been going on since before her cancer diagnosis. Neurologic - Denies dizziness and headaches. Psychiatric - Denies depression.. Vital Signs: Performed on 03/23/2020 1:09 PM Height - 64.00 in, Weight - 232.6 lbs (high), BSA - 2.09 sq.m, BMI - 39.93 (high), Temperature - 98.2 f (low), Pulse - 73 /min, Respiration - 24 /min, O2 Sat - 95 % (low), Pain - 0, BP - 126/ 77 mm(hg), Performed on 03/23/2020 1:44 PM Weight - 232.6 lbs, Temperature - 98.2 f, Pulse - 73, Respiration - 24, O2 Sat - 95 % (low), Pain - 0 and BP - 126/ 77 mm(hg). Physical Exam: General: Alert and oriented x 3. No acute distress. HEENT: Normocephalic, atraumatic. Extraocular Movements Intact: Pupils Equal, Round, Reactive to Light and Accommodation: Sclerae anicteric. Oral cavity is clear without lesions, masses or ulcers. NECK: Supple without supraclavicular or jugular lymphadenopathy. Breast: The left breast demonstrates a tiny wound healing defect in the inferior lumpectomy incision. It is estimated that another two weeks will be needed for further wound healing prior to initiating radiotherapy. LUNGS: Clear to auscultation bilaterally without rales, rhonchi or wheeze. HEART: Regular rate and rhythm, normal S1 and S2 without murmur, gallop or rub. MUSCULOSKELETAL: No tenderness or percussion pain over the axial skeleton, scapulae or pelvis. ABDOMEN: Soft, nontender, nondistended without masses or organomegaly. Bowell sounds are present. EXTREMITIES: No peripheral edema is identified. Limited motor and sensory examination are grossly intact and symmetric bilaterally. NEUROLOGIC: Cranial nerves II ???XII are grossly intact. Normal sensation, strength 5/5 in all extremities, normal gait, no ataxia. Performance Status: 0 - Fully active, able to carry on all predisease activities without restrictions. (ECOG) Lab: None pending. Test performed on 03/03/2020 1:12 PM WBC - 11.0 10 3/ul (high), MCH - 27.8 pg (low), Platelet Count - 408 10 3/cmm (high), Lymphocytes - 5.1 10 3/ul (high), Potassium - 3.3 mmol/l (low), Chloride - 95 mmol/l (low), Creatinine - 1.0 mg/dl (high), eGFR - 55.8 ml/min (low), Glucose - 136 mg/dl (high), Calcium - 11.2 mg/dl (high) and ALT (SGPT) - 39 u/l (high). Pathology: Primary, z17.0 - estrogen receptor positive status [er+], Diagnosed 02/11/2020 (active) and Primary, c50.812 - malignant neoplasm of overlapping sites of left female breast, Diagnosed 02/11/2020 (active). Imaging: See HPI Impression: The patient is a 64-year-old female with pT1b pN0 (0/3 sn) M0 Grade 2 moderately differentiated ductal carcinoma with micropapillary pattern of the left breast at the 3 o'clock position, ER +95%, MO +99%, HER-2/neeraj negative, Ki-67 14%. She was treated with lumpectomy and sentinel lymph node biopsy (02/05/2020). Pathology revealed widely negative postsurgical margins, 0/3 involved lymph nodes, and the primary measured 0.9 cm. Oncotype DX testing revealed an insufficient amount of tissue to adequately evaluate. The patient was offered a second opinion from a tertiary center by Dr Chapman, but the patient reportedly declined and shared that she would not accept chemotherapy even if it was offered. Therefore, the plan is for 42.56 Gy in 16 fractions to the entire left breast followed by a boost of 10 Gy in 4 fractions. Simulation will begin in two weeks to allow for further skin healing. Signed by: 03/23/2020 2:44:14 PM <<Signature on File>> Time spent with patient: CPT Code: CPT Code:
--- NOTE | 2020-03-23 15:19 | ONC FU_ITS ---
Dr. Chapman follow up note Patient: Shannon Henderson < Unit #: [id number]: 1955 Dicatated By: Gucci Chapman M.D.Date of Visit:Mar 23, 2020 Onc Med Follow-up/Prog Note History of Present Illness: Ms. Shannon Henderson, is a 64-year-old female who underwent mammogram for right breast palpable mass on December 18, 2019 and the impression was on the right side medial inferior breast mass was probably due to lipoma as no underlying mass was identified but there was incidental finding in the left breast there was a subcentimeter mass in the upper quadrant of left breast anterior mass measures 6 mm in the posterior mass measured 5 mm and contains central calcification. Patient underwent repeat mammogram/ultrasound on January 10, 2020 which confirmed benign lipoma right side and in left breast at 3 o'clock position, 2 cm from nipple is a hypoechoic mass measuring 6 x 7 x 7 mm subsequently patient underwent ultrasound-guided needle biopsy on January 23, 2020 which confirmed invasive carcinoma ER NH positive HER-2/neeraj negative with a Ki-67 14%. Patient was referred to surgery and underwent left breast lumpectomy on February 05, 2020 which showed residual tumor size 0.9 cm tumor is free of margin but approaches within 1 mm of superior margin. pT1b 3 left axillary sentinel lymph nodes were removed and showed no evidence of metastatic disease pN0 Patient tolerated procedure well Patient denies any specific complaints with denies any fever chills denies any nipple discharge denies any tenderness in left breast. Has follow-up appointment with Dr. Vizcaino today. Past medical history significant for anxiety/depression, controlled type 2 diabetes mellitus, DVT of lower extremity. Dyslipidemia. Essential hypertension. Gastroesophageal reflux disease. Osteoarthritis. Status post colonoscopy with polypectomy in 2017., History of hysterectomy. No history of smoking. Occasional alcohol use. Patient never had abnormal mammogram before. But last year she missed her follow-up mammogram, family history positive for paternal aunt with history of breast cancer. History of oral contraceptive for a few years. Patient had 3 pregnancies, 3 live births, 2 boys and 1 girl. No history of breast-feeding. Came for follow-up, denies any specific complaints, no nausea vomiting, no fever chills, no diarrhea constipation, left breast infection has almost resolved. Tolerating Arimidex well. Oncotype DX score testing was ordered, initially it was not done because of insufficient specimen, case was discussed with pathology again and another slide with 'sufficient' tissue was sent for testing and report came back again, Oncotype DX testing could not be performed due to insufficient specimen. Medications: Arimidex 1 Tablet (of 1 mg) Oral daily, Atorvastatin Calcium 1 Tablet (of 20 mg) Oral daily, Celecoxib 1 Capsule (of 200 mg) Oral daily, Cephalexin 1 Capsule (of 500 mg) Oral daily, Docusate Sodium 1 Tablet (of 100 mg) Oral b.i.d., Furosemide 1 Tablet (of 20 mg) Oral b.i.d., Januvia 1 Tablet (of 100 mg) Oral daily, Klor-Con 10 1 Tablet (of 10 meq) Tablet, controlled release Oral daily, Lisinopril-hydroCHLOROthiazide 1 Tablet (of 20-25 mg) Oral daily, LORazepam 1 Tablet (of 0.5 mg) Oral b.i.d., Meloxicam 1 Tablet (of 15 mg) Oral daily, metFORMIN HCl 1 Tablet (of 1000 mg) Oral b.i.d., Ondansetron HCl 1 Tablet (of 4 mg) Oral q 6 hours, PARoxetine HCl 1 Tablet (of 20 mg) Oral daily Allergies: No Known Allergies. Review of Systems: Constitutional - Appetite is good and weight is stable. No fever or hot flashes. She has night sweats and has some fatigue, which she states is manageable. ECOG score is 0, ENMT - No sinus congestion/drainage. No mouth sores. No sore throat or difficulty swallowing, Hematologic/Lymphatic - No abnormal bruising or bleeding, Respiratory - No shortness of breath. No cough. No pleuritic pain or hemoptysis, Cardiovascular - No angina pain. No palpitations, Gastrointestinal - No nausea or vomiting. No heartburn or acid reflux. No diarrhea or constipation. No blood in the stool or black stools, Genitourinary (F) - No dysuria or hematuria. No urinary frequency. No urgency or incontinence, Musculoskeletal - No bone pain. She has some pain in her left hand, which she states she has had since before her cancer diagnosis, but states it appears to be getting worse, Neurologic - No headache or dizziness. No numbness or tingling. No other focal neurologic symptoms, Psychiatric - No depression. No insomnia. She has some anxiety, which she states is managed with medication, Constitutional - Complains of fatigue which is mild and manageable and night sweats. Denies lack of appetite and fever, Cardiovascular - Denies chest pain and palpitations, Respiratory - Denies cough, Gastrointestinal - Denies constipation, diarrhea, nausea and vomiting, Genitourinary (F) - Denies dysuria, hematuria, incontinence, nocturia and urgency, Musculoskeletal - Complains of joint pain in her left hand which she states has been going on since before her cancer diagnosis, Neurologic - Denies dizziness and headaches, Psychiatric - Denies depression. Vital Signs: Performed on Mar 23, 2020 13:44 Weight - 232.6 lbs Temperature - 98.2 F Pulse - 73 Respiration - 24 BP - 126/77 mm(hg) O2 Sat - 95 % (LOW) Pain - 0 Performed on Mar 23, 2020 13:09 Height - 64.00 in Weight - 232.6 lbs (HIGH) BSA - 2.09 sq.m BMI - 39.93 (HIGH) Temperature - 98.2 F (LOW) Pulse - 73 /min Respiration - 24 /min BP - 126/77 mm(hg) O2 Sat - 95 % (LOW) Pain - 0 Performance Status: 0 - Fully active, able to carry on all predisease activities without restrictions. (ECOG) Physical Examination: Respiratory - Lungs are clear, Cardiovascular - Regular rate and rhythm of heart, Gastrointestinal - Soft, bowel sounds present, Extremities - No visible edema or rash. Lab/Imaging: Test performed on Mar 03, 2020 13:12 Sodium 137 mmol/L Potassium 3.3 mmol/L Chloride 95 mmol/L CO2 29 mmol/L Anion Gap 16.3 BUN 19 mg/dL Creatinine 1.0 mg/dL Cr Clearance (Est) 94.01 mL/min eGFR 55.8 mL/min Glucose 136 mg/dL Calcium 11.2 mg/dL Protein, Total 8.4 g/dL Albumin 4.9 g/dL Globulin 3.5 g/dL Bilirubin, Total 0.4 mg/dL ALT (SGPT) 39 U/L AST (SGOT) 29 U/L Alkaline Phosphatase 83 IU/L WBC 11.0 10 3/uL RBC 5.15 10 6/uL HGB 14.3 g/dL HCT 46.1 % MCV 89.5 fL MCH 27.8 pg MCHC 31.0 g/dL RDW 14.3 % Platelet Count 408 10 3/cmm MPV 9.7 fL Neutrophils 4.77 10 3/uL Lymphocytes 5.1 10 3/uL Monocytes 0.8 10 3/uL Eosinophils 0.3 10 3/uL Basophils 0.1 10 3/uL Neutrophil % 43.3 % Lymphocyte % 46.6 % Monocyte % 6.9 % Eosinophil % 2.4 % Basophils % 0.6 % NRBC % 0 % 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, involving left breast status post ultrasound-guided biopsy done on January 23, 2020 followed by left breast lumpectomy with sentinel lymph node biopsy final pathology report showed 0.9 cm invasive tumor with clear margins but approaches within 1 mm of superior margin, no lymphovascular invasion seen pT1b, 0 out of 3 sentinel lymph node showed metastatic disease pN0 ER 95% positive, NH 99% positive, HER-2/neeraj negative, Ki-67 14% H, Started on Arimidex/vitamin D/calcium on February 11, 2020 for 5 years History of lower extremity DVT Dyslipidemia Hypertension Type 2 diabetes mellitus Anxiety/depression Plan: Discussed with patient regarding her labs white blood count 8.7 hemoglobin 30.1 crit 43.3 platelets 322,000 CMP within normal limits Clinically, patient is doing well with no signs symptom suggestive of recurrence of disease, now being treated with adjuvant therapy with Arimidex 1 mg p.o. daily along with vitamin D and calcium, tolerating well. Oncotype DX testing was ordered but it was not done due to insufficient specimen, case was discussed with pathology so it was reordered again, but due to insufficient specimen it was not done. So discussed with patient as there is no appropriate specimen available for Oncotype DX testing, referrel to tertiary care center for evaluation regarding clinical trial versus second opinion was offered but patient said she is not considering chemotherapy in any case rather wants to continue with adjuvant hormone therapy and postlumpectomy radiation therapy., Knowing the risk versus benefits. In that case we will continue with Arimidex 1 mg p.o. daily along with vitamin D/calcium supplement and she will return to clinic in 3 months with CBC CMP. Left breast surgical wound is healing well, anticipate left breast postlumpectomy radiation therapy in about 2 weeks. Signed By: Gucci Chapman M.D. <<Signature on File>>
== END 2020-03-23 12:28 | disposition home or self-care (01) ==
LOC: ONCMED 12:30
PROVIDERS: Absent Provider Radiology Radiation Oncology; PCP Family Medicine; Visit Provider Internal Medicine Hematology & Oncology
DX: C50.812 Malignant neoplasm of overlapping sites of left female breast (principal); Z17.0 Estrogen receptor positive status [ER+]; S21.002D Unspecified open wound of left breast, subsequent encounter; Y83.8 Other surgical procedures as the cause of abnormal reaction of the patient, or of later complication, without mention of misadventure at the time of the procedure; E78.5 Hyperlipidemia, unspecified; I10 Essential (primary) hypertension; E11.9 Type 2 diabetes mellitus without complications; F41.8 Other specified anxiety disorders; Z79.811 Long term (current) use of aromatase inhibitors; Z86.718 Personal history of other venous thrombosis and embolism
CPT/HCPCS: 36415; 80053; 85025; 99214

== ENCOUNTER 2020-04-08 09:53 | Outpatient (RCR) | payer MEDICARE, SELFPAY ==
--- NOTE | 2020-04-08 | CT_ITS ---
Radiation Therapy Planning CT images; total exam DLP: 2093.02 mGy-cm MTDD
== END 2020-04-13 23:59 | disposition home or self-care (01) ==
LOC: ONCMED 09:53
PROVIDERS: PCP Family Medicine; Visit Provider Radiology Radiation Oncology
DX: C50.812 Malignant neoplasm of overlapping sites of left female breast (principal); Z17.0 Estrogen receptor positive status [ER+]

== ENCOUNTER 2020-05-13 05:42 | Outpatient (RCR) | payer MEDICARE, SELFPAY ==
--- NOTE | 2020-04-21 17:14 | ONCRAD TMN_ITS ---
Radiation Oncology Weekly Treatment Management Patient: Beatriz Ortega MR#: [id number] : 1955 Age: 64 Sex: Female Dictated by: Dr. Zander Almeida Date of Service: 04/21/2020 Referring Physician(s) : Diagnosis: pT1b pN0 (0/3 LNs) M0 Grade 2 moderately differentiated ductal carcinoma with micropapillary pattern of the left breast at the 3 o'clock position, ER +95%, NM +99%, HER-2/neeraj negative, Ki-67 14%. She is status post lumpectomy and sentinel lymph node dissection (02/05/2020) with widely negative postsurgical margins, 0/3 involved lymph nodes, and the primary measured 0.9 cm. Oncotype DX testing revealed an insufficient amount of tissue to evaluate. The patient was offered a second opinion from a tertiary center by Dr Chapman, but the patient reportedly declined and shared that she would not accept chemotherapy even if it was offered. Therefore, the plan is for 42.56 Gy in 16 fractions to the left breast followed by a boost of 10 Gy in 4 fractions. Simulation will begin in two weeks to allow for further skin healing. The patient initiated Arimidex on 02/17/2020. Radiotherapy to date: Course: LT Breast 2019, Treatment Site: L Breast 16FX, Ref. ID: [id number], Energy: 15X, Dose/Fx (cGy): 266, #Fx: , Dose Correction (cGy): 0, Total Dose (cGy): 1,064, Start Date: 04/15/2020, Elapsed Days: 6 Reason for visit: The patient is being seen today as part of their regularly scheduled weekly on treatment visits to assess for acute toxicities from radiotherapy. Interim History: The patient is seen today as part of her weekly on treatment visits. She has received a total dose of 10.64 Gy in 4 fractions. She reports interval growth of erythema within her left breast. Erythema this early on is not consistent with radiation therapy. Current Medications: Arimidex, arimidex, atorvastatin Calcium, celecoxib, cephalexin, docusate Sodium, furosemide, januvia, klor-Con 10, lisinopril-hydroCHLOROthiazide, lORazepam, meloxicam, metFORMIN HCl, ondansetron HCl, pARoxetine HCl. Allergies: No Known Allergies Current Complaints/Review of Systems: Constitutional - Complains of mild fatigue. Complains of night sweats which occur every night. Denies lack of appetite and fever. ENMT - Denies dysphagia. Integumentary - Has slight redness to the left breast. Breasts - Complains of pain in the left breast around the incisional line occasionally. Cardiovascular - Complains of edema in both feet and left hand. Denies chest pain. Respiratory - Complains of wheezing occasionally. Denies cough and dyspnea. Vital Signs: Performed on 04/21/2020 10:07 AM BMI - 42.089 kg/m2 (high), Height - 64.00 in, Weight - 245.2 lbs, Temperature - 98.9 f, Pulse - 62, Respiration - 20, O2 Sat - 95 % (low), Pain - 0 and BP - 147/ 80 mm(hg)(high/). Physical Exam: Erythema at the lumpectomy site is well appreciated. The patient has physical exam findings consistent with a growing seroma within the treated breast. Performance Status: 0 - Fully active, able to carry on all predisease activities without restrictions. (ECOG) Lab: None pending in Radiation Oncology. Imaging: Radiation therapy imaging related to accurate target localization (i.e. KV, MV and CBCT) was reviewed. Appropriate changes, if any, were made to ensure treatment accuracy. Plan: The patient is tolerating therapy reasonably well. Radiotherapy will continue as planned. The erythema that the patient is experiencing in her treated breast is inconsistent with radiation therapy after only 4 fractions. It is more likely to be an infected seroma. The patient was recommended to go see her surgeon to determine if antibiotic treatment is appropriate. CPT: 38779 Signed by: Dr. Zander Almeida 04/21/2020 5:12:47 PM
--- NOTE | 2020-04-29 16:07 | ONCRAD TMN_ITS ---
Radiation Oncology Weekly Treatment Management Patient: Shannon Henderson MR#: [id number] : 1955 Age: 64 Sex: Female Dictated by: Dr. Zander Almeida Date of Service: 04/28/2020 Referring Physician(s) : Diagnosis: Z17.0 - Estrogen receptor positive status [ER+], Diagnosed 02/11/2020 (Active) C50.812 - Malignant neoplasm of overlapping sites of left female breast, Diagnosed 02/11/2020 (Active) Diagnosis: pT1b pN0 (0/3 LNs) M0 Grade 2 moderately differentiated ductal carcinoma with micropapillary pattern of the left breast at the 3 o'clock position, ER +95%, PA +99%, HER-2/neeraj negative, Ki-67 14%. She is status post lumpectomy and sentinel lymph node dissection (02/05/2020) with widely negative postsurgical margins, 0/3 involved lymph nodes, and the primary measured 0.9 cm. Oncotype DX testing revealed an insufficient amount of tissue to evaluate. The patient was offered a second opinion from a tertiary center by Dr Chapman, but the patient reportedly declined and shared that she would not accept chemotherapy even if it was offered. Therefore, the plan is for 42.56 Gy in 16 fractions to the left breast followed by a boost of 10 Gy in 4 fractions. Simulation will begin in two weeks to allow for further skin healing. The patient initiated Arimidex on 02/17/2020. During treatment, erythema and swelling was appreciated within the lumpectomy cavity, and the patient was initiated on Keflex. Radiotherapy to date: Course: LT Breast 2019, Treatment Site: L Breast 16FX, Ref. ID: [id number], : 15X, Dose/Fx (cGy): 266, #Fx: , Dose Correction (cGy): 0, Total Dose (cGy): 2,394, Start Date: 04/15/2020, Elapsed Days: 13 Reason for visit: The patient is being seen today as part of their regularly scheduled weekly on treatment visits to assess for acute toxicities from radiotherapy. Interim History: The patient was recently placed on Keflex and the erythema within her treated breast has decreased since last week. Current Medications: Arimidex, arimidex, atorvastatin Calcium, celecoxib, cephalexin, docusate Sodium, furosemide, januvia, klor-Con 10, lisinopril-hydroCHLOROthiazide, lORazepam, meloxicam, metFORMIN HCl, ondansetron HCl, pARoxetine HCl. Allergies: No Known Allergies Vital Signs: Performed on 04/28/2020 10:54 AM BMI - 42.226 kg/m2 (high), Height - 64.00 in, Weight - 246.0 lbs, Temperature - 98.4 f, Pulse - 61, Respiration - 18, O2 Sat - 93 % (low), Pain - 0 and BP - 154/ 76 mm(hg)(high/). Physical Exam: Erythema at the surgical site is appreciated, and appears less than it did last week. There is no current erythema associated with radiation therapy. Performance Status: 0 - Fully active, able to carry on all predisease activities without restrictions. (ECOG) Lab: None pending in Radiation Oncology. Test performed on 03/23/2020 12:35 PM eGFR - 63.0 ml/min (low) and Glucose - 161 mg/dl (high). Imaging: Radiation therapy imaging related to accurate target localization (i.e. KV, MV and CBCT) was reviewed. Appropriate changes, if any, were made to ensure treatment accuracy. Plan: The patient is tolerating therapy reasonably well. Radiotherapy will continue as planned. CPT: 69444 Signed by: Dr. Zander Almeida 04/29/2020 4:06:17 PM
--- NOTE | 2020-05-06 17:35 | ONCRAD TMN_ITS ---
Radiation Oncology Weekly Treatment Management Patient: Beatriz Ortega MR#: [id number] : 1955 Age: 64 Sex: Female Dictated by: Dr. Zander Almeida Date of Service: 05/05/2020 Referring Physician(s) : Diagnosis: Z17.0 - Estrogen receptor positive status [ER+], Diagnosed 02/11/2020 (Active) C50.812 - Malignant neoplasm of overlapping sites of left female breast, Diagnosed 02/11/2020 (Active) Diagnosis: pT1b pN0 (0/3 LNs) M0 Grade 2 moderately differentiated ductal carcinoma with micropapillary pattern of the left breast at the 3 o'clock position, ER +95%, CO +99%, HER-2/neeraj negative, Ki-67 14%. She is status post lumpectomy and sentinel lymph node dissection (02/05/2020) with widely negative postsurgical margins, 0/3 involved lymph nodes, and the primary measured 0.9 cm. Oncotype DX testing revealed an insufficient amount of tissue to evaluate. The patient was offered a second opinion from a tertiary center by Dr Chapman, but the patient reportedly declined and shared that she would not accept chemotherapy even if it was offered. Therefore, the plan is for 42.56 Gy in 16 fractions to the left breast followed by a boost of 10 Gy in 4 fractions. Simulation will begin in two weeks to allow for further skin healing. The patient initiated Arimidex on 02/17/2020. During the first few fractions of treatment, erythema and swelling was appreciated within the lumpectomy cavity, and the patient was initiated on Keflex. Radiotherapy to date: Course: LT Breast 2019, Treatment Site: L Breast 16FX, Ref. ID: [id number], Energy: 15X, Dose/Fx (cGy): 266, #Fx: , Dose Correction (cGy): 0, Total Dose (cGy): 3,724, Start Date: 04/15/2020, Elapsed Days: 20 Reason for visit: The patient is being seen today as part of their regularly scheduled weekly on treatment visits to assess for acute toxicities from radiotherapy. Interim History: Her swelling decreased after Keflex initiation. In addition, since the patient was last seen her weight has decreased by 13 pounds. This is most likely attributed to her resuming to take her hydrochlorothiazide. Current Medications: Arimidex, arimidex, atorvastatin Calcium, celecoxib, cephalexin, docusate Sodium, furosemide, januvia, keflex, klor-Con 10, lisinopril-hydroCHLOROthiazide, lORazepam, meloxicam, metFORMIN HCl, ondansetron HCl, pARoxetine HCl. Allergies: No Known Allergies Current Complaints/Review of Systems: Constitutional - Complains of mild fatigue. Complains of night sweats which occur occasionally. Denies lack of appetite and fever. ENMT - Denies dysphagia. Integumentary - Has redness to the breast to the left. Breasts - Complains of pain in the left breast occasionally that comes and goes. Cardiovascular - Complains of chest pain in the substernal which happened only one time yesterday after walking. Denies arrhythmias and edema. Respiratory - Denies cough, dyspnea and wheezing. Vital Signs: Performed on 05/05/2020 10:53 AM BMI - 40.063 kg/m2 (high), Height - 64.00 in, Weight - 233.4 lbs, Temperature - 98.9 f, Pulse - 67, Respiration - 18, O2 Sat - 95 % (low), Pain - 0 and BP - 139/ 75 mm(hg). Physical Exam: Moderate erythema over the entire treated breast. No desquamation. Performance Status: 0 - Fully active, able to carry on all predisease activities without restrictions. (ECOG) Lab: None pending in Radiation Oncology. Test performed on 03/03/2020 1:12 PM WBC - 11.0 10 3/ul (high), MCH - 27.8 pg (low), Platelet Count - 408 10 3/cmm (high), Lymphocytes - 5.1 10 3/ul (high), Test performed on 03/23/2020 12:35 PM eGFR - 63.0 ml/min (low) and Glucose - 161 mg/dl (high). Imaging: Radiation therapy imaging related to accurate target localization (i.e. KV, MV and CBCT) was reviewed. Appropriate changes, if any, were made to ensure treatment accuracy. Plan: The patient is tolerating therapy reasonably well. Radiotherapy will continue as planned. CPT: 95251 Signed by: Dr. Zander Almeida 05/06/2020 5:33:00 PM
--- NOTE | 2020-05-14 08:53 | ONCRAD TMN_ITS ---
Radiation Oncology Weekly Treatment Management Patient: Beatriz Ortega MR#: [id number] : 1955 Age: 64 Sex: Female Dictated by: Dr. Zander Almeida Date of Service: 05/12/2020 Referring Physician(s) : Diagnosis: Z17.0 - Estrogen receptor positive status [ER+], Diagnosed 02/11/2020 (Active) C50.812 - Malignant neoplasm of overlapping sites of left female breast, Diagnosed 02/11/2020 (Active) Diagnosis: pT1b pN0 (0/3 LNs) M0 Grade 2 moderately differentiated ductal carcinoma with micropapillary pattern of the left breast at the 3 o'clock position, ER +95%, MO +99%, HER-2/neeraj negative, Ki-67 14%. She is status post lumpectomy and sentinel lymph node dissection (02/05/2020) with widely negative postsurgical margins, 0/3 involved lymph nodes, and the primary measured 0.9 cm. Oncotype DX testing revealed an insufficient amount of tissue to evaluate. The patient was offered a second opinion from a tertiary center by Dr Chapman, but the patient reportedly declined and shared that she would not accept chemotherapy even if it was offered. Therefore, the plan is for 42.56 Gy in 16 fractions to the left breast followed by a boost of 10 Gy in 4 fractions. Simulation will begin in two weeks to allow for further skin healing. The patient initiated Arimidex on 02/17/2020. During the first few fractions of treatment, erythema and swelling was appreciated within the lumpectomy cavity, and the patient was initiated on Keflex. Radiotherapy to date: Course: Breast 2019, Treatment Site: [id number], Ref. ID: [id number], Energy: 15X/6X, Dose/Fx (cGy): 250, #Fx: 3 / 4, Dose Correction (cGy): 0, Total Dose (cGy): 750, Start Date: 05/08/2020, End Date: 05/13/2020, Elapsed Days: 4 Course: Breast 2019, Treatment Site: L Breast 16FX, Ref. ID: [id number], Energy: 15X, Dose/Fx (cGy): 266, #Fx: 16 / 16, Dose Correction (cGy): 0, Total Dose (cGy): 4,256, Start Date: 04/15/2020, End Date: 05/07/2020, Elapsed Days: 22 Reason for visit: The patient is being seen today as part of their regularly scheduled weekly on treatment visits to assess for acute toxicities from radiotherapy. Interim History: Aside from skin irritation of the treated breast, the patient has no complaints. Current Medications: Arimidex, arimidex, atorvastatin Calcium, celecoxib, cephalexin, docusate Sodium, furosemide, januvia, keflex, klor-Con 10, lisinopril-hydroCHLOROthiazide, lORazepam, meloxicam, metFORMIN HCl, ondansetron HCl, pARoxetine HCl. Allergies: No Known Allergies Vital Signs: Performed on 05/12/2020 11:24 AM BMI - 40.338 kg/m2 (high), Height - 64.00 in, Weight - 235.0 lbs, Temperature - 98.6 f, Pulse - 70, Respiration - 20, O2 Sat - 94 % (low), Pain - 0 and BP - 125/ 80 mm(hg). Physical Exam: Erythema without desquamation is appreciated in the treated breast Performance Status: 0 - Fully active, able to carry on all predisease activities without restrictions. (ECOG) Lab: None pending in Radiation Oncology. Imaging: Radiation therapy imaging related to accurate target localization (i.e. KV, MV and CBCT) was reviewed. Appropriate changes, if any, were made to ensure treatment accuracy. Plan: The patient is tolerating therapy reasonably well. Radiotherapy will continue as planned. CPT: 54630 Signed by: Dr. Zander Almeida 05/14/2020 8:52:00 AM
== END 2020-05-13 23:59 | disposition home or self-care (01) ==
LOC: ONCMED 05:42
PROVIDERS: PCP Family Medicine; Visit Provider Radiology Radiation Oncology
DX: Z51.0 Encounter for antineoplastic radiation therapy (principal); C50.812 Malignant neoplasm of overlapping sites of left female breast; Z17.0 Estrogen receptor positive status [ER+]
CPT/HCPCS: 77295; 77300; 77307; 77334; 77336; 77412; 77417

== ENCOUNTER → 2020-06-04 10:05 | Outpatient (BNVA) | payer MEDICARE, SELFPAY | PROVIDERS: PCP Family Medicine; Visit Provider Family Medicine | DX: I10 Essential (primary) hypertension (principal); E11.9 Type 2 diabetes mellitus without complications; E78.5 Hyperlipidemia, unspecified; Z23 Encounter for immunization | CPT/HCPCS: 80053; 80061; 82043; 83036 ==

== ENCOUNTER 2020-06-24 05:52 | Outpatient (CLI) | payer MEDICARE, SELFPAY ==
[2020-06-24 12:47] LABS: Basophils # 0.1 10^3/uL (0.0-0.1); Basophils % 0.8 %; Eosinophils # 0.1 10^3/uL (0.0-0.8); Eosinophils % 1.7 %; Hematocrit 43.5 % (37.0-47.0); Hemoglobin 13.5 g/dL (11.5-15.3); Lymphocytes # 3.1 10^3/uL (0.8-4.8); Lymphocytes % 43.5 %; Mean Corpuscular Hemoglobin 26.9 pg (28.0-34.0); Mean Corpuscular Volume 86.8 fL (81-99); Mean Platelet Volume 9.3 fL (7.4-10.4); Monocytes # 0.5 10^3/uL (0.2-0.9); Monocytes % 6.8 %; Neutrophils # 3.35 10^3/uL (1.8-7.7); Neutrophils % 47.1 %; Nucleated Red Blood Cells % 0 %; Platelet Count 353 10^3/cmm (130-400); Red Blood Count 5.01 10^6/uL (4.1-5.3); Red Cell Distribution Width 14.4 % (12.1-15.1); White Blood Count 7.1 10^3/uL (4.0-10.0)
[2020-06-24 14:17] LABS: Alanine Aminotransferase 29 U/L (0-33); Albumin Level 4.5 g/dL (3.5-5.2); Alkaline Phosphatase 70 IU/L (35-105); Anion Gap 13.5 (5-19); Aspartate Amino Transferase 26 U/L (0-32); Blood Urea Nitrogen 21 mg/dL (8-23); Calcium 10.1 mg/dL (8.5-10.5); Carbon Dioxide 30 mmol/L (22-29); Chloride 96 mmol/L (98-107); Globulin 2.8 g/dL (1.3-4.6); Glomerular Filtration Rate 72.2 mL/min (90-130); Glucose 163 mg/dL (65-115); Osmolality Calculated 289 mOsm/kg (285-295); Potassium 3.5 mmol/L (3.5-5.1); Sodium 136 mmol/L (136-145); Total Bilirubin 0.3 mg/dL (0.15-1.2); Total Protein 7.3 g/dL (6.6-8.7)
--- NOTE | 2020-06-24 14:48 | ONC FU_ITS ---
Dr. Chapman follow up note Patient: Shannon Henderson < Unit #: [id number]: 1955 Dicatated By: Gucci Chapman M.D.Date of Visit:Jun 24, 2020 Onc Med Follow-up/Prog Note History of Present Illness: Ms. Shannon Henderson, is a 64-year-old female who underwent mammogram for right breast palpable mass on December 18, 2019 and the impression was on the right side medial inferior breast mass was probably due to lipoma as no underlying mass was identified but there was incidental finding in the left breast there was a subcentimeter mass in the upper quadrant of left breast anterior mass measures 6 mm in the posterior mass measured 5 mm and contains central calcification. Patient underwent repeat mammogram/ultrasound on January 10, 2020 which confirmed benign lipoma right side and in left breast at 3 o'clock position, 2 cm from nipple is a hypoechoic mass measuring 6 x 7 x 7 mm subsequently patient underwent ultrasound-guided needle biopsy on January 23, 2020 which confirmed invasive carcinoma ER IN positive HER-2/neeraj negative with a Ki-67 14%. Patient was referred to surgery and underwent left breast lumpectomy on February 05, 2020 which showed residual tumor size 0.9 cm tumor is free of margin but approaches within 1 mm of superior margin. pT1b 3 left axillary sentinel lymph nodes were removed and showed no evidence of metastatic disease pN0 Patient tolerated procedure well Past medical history significant for anxiety/depression, controlled type 2 diabetes mellitus, DVT of lower extremity. Dyslipidemia. Essential hypertension. Gastroesophageal reflux disease. Osteoarthritis. Status post colonoscopy with polypectomy in 2017., History of hysterectomy. No history of smoking. Occasional alcohol use. Patient never had abnormal mammogram before. But last year she missed her follow-up mammogram, family history positive for paternal aunt with history of breast cancer. History of oral contraceptive for a few years. Patient had 3 pregnancies, 3 live births, 2 boys and 1 girl. No history of breast-feeding. Tolerating Arimidex well. Oncotype DX score testing was ordered, initially it was not done because of insufficient specimen, case was discussed with pathology again and another slide with 'sufficient' tissue was sent for testing and report came back again, Oncotype DX testing could not be performed due to insufficient specimen. Came for follow-up, denies any specific complaints, generalized weakness and fatigue, no fever chills, no nausea or vomiting, no diarrhea or constipation occasionally hot flashes otherwise tolerating Arimidex well, patient was on vitamin D/calcium supplement, as per patient her routine lab done by PMD showed calcium was up so calcium was discontinued Medications: Arimidex 1 Tablet (of 1 mg) Tablet Oral daily, Atorvastatin Calcium 1 Tablet (of 20 mg) Oral daily, Celecoxib 1 Capsule (of 200 mg) Oral daily, Cephalexin 1 Capsule (of 500 mg) Oral daily, Docusate Sodium 1 Tablet (of 100 mg) Oral b.i.d., Furosemide 1 Tablet (of 20 mg) Oral b.i.d., Januvia 1 Tablet (of 100 mg) Oral daily, Keflex 1 (500 mg) Capsule Oral t.i.d., Klor-Con 10 1 Tablet (of 10 meq) Tablet, controlled release Oral daily, Lisinopril-hydroCHLOROthiazide 1 Tablet (of 20-25 mg) Oral daily, LORazepam 1 Tablet (of 0.5 mg) Oral b.i.d., Meloxicam 1 Tablet (of 15 mg) Oral daily, metFORMIN HCl 1 Tablet (of 1000 mg) Oral b.i.d., Ondansetron HCl 1 Tablet (of 4 mg) Oral q 6 hours, PARoxetine HCl 1 Tablet (of 20 mg) Oral daily Allergies: No Known Allergies. Review of Systems: Constitutional - Appetite is good and weight is stable. No fever or hot flashes. She has night sweats and has some fatigue, which she states is manageable. ECOG score is 0, ENMT - No sinus congestion/drainage. No mouth sores. No sore throat or difficulty swallowing, Hematologic/Lymphatic - No abnormal bruising or bleeding, Respiratory - No shortness of breath. No cough. No pleuritic pain or hemoptysis, Cardiovascular - No angina pain. No palpitations, Gastrointestinal - Occasional nausea, no vomiting. No heartburn or acid reflux. No diarrhea or constipation. No blood in the stool or black stools, Genitourinary (F) - No dysuria or hematuria. No urinary frequency. No urgency or incontinence, Musculoskeletal - No bone pain, Neurologic - No headache or dizziness. No numbness or tingling. No other focal neurologic symptoms, Psychiatric - No depression. No insomnia. She has some anxiety, which she states is managed with medication. Vital Signs: Performed on Jun 24, 2020 14:19 Height - 64.00 in Weight - 238.2 lbs (HIGH) BSA - 2.11 sq.m BMI - 40.89 (HIGH) Temperature - 97.6 F (LOW) Pulse - 88 /min Respiration - 24 /min BP - 133/72 mm(hg) O2 Sat - 93 % (LOW) Pain - 0 Performance Status: 0 - Fully active, able to carry on all predisease activities without restrictions. (ECOG) Physical Examination: Respiratory - Lungs are clear to auscultation, Cardiovascular - Regular rate and rhythm of heart, Gastrointestinal - Soft, bowel sounds present, Extremities - No visible edema or rash. Lab/Imaging: Test performed on Mar 23, 2020 12:35 Sodium 138 mmol/L Potassium 3.5 mmol/L Chloride 101 mmol/L CO2 26 mmol/L Anion Gap 14.5 BUN 20 mg/dL Creatinine 0.9 mg/dL Cr Clearance (Est) 105.18 mL/min eGFR 63.0 mL/min Glucose 161 mg/dL Calcium 10.1 mg/dL Osmolality - Calculated 286 mOsm/kg Protein, Total 7.5 g/dL Albumin 4.5 g/dL Globulin 3.0 g/dL Bilirubin, Total 0.4 mg/dL ALT (SGPT) 30 U/L AST (SGOT) 18 U/L Alkaline Phosphatase 55 IU/L WBC 8.7 10 3/uL RBC 4.67 10 6/uL HGB 13.1 g/dL HCT 43.3 % MCV 92.7 fL MCH 28.1 pg MCHC 30.3 g/dL RDW 14.3 % Platelet Count 322 10 3/cmm MPV 9.7 fL Neutrophils 3.90 10 3/uL Lymphocytes 4.0 10 3/uL Monocytes 0.5 10 3/uL Eosinophils 0.2 10 3/uL Basophils 0.1 10 3/uL Neutrophil % 44.8 % Lymphocyte % 45.9 % Monocyte % 6.0 % Eosinophil % 2.3 % Basophils % 0.8 % NRBC % 0 % 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, involving left breast status post ultrasound-guided biopsy done on January 23, 2020 followed by left breast lumpectomy with sentinel lymph node biopsy final pathology report showed 0.9 cm invasive tumor with clear margins but approaches within 1 mm of superior margin, no lymphovascular invasion seen pT1b, 0 out of 3 sentinel lymph node showed metastatic disease pN0 ER 95% positive, IN 99% positive, HER-2/neeraj negative, Ki-67 14% H, Started on Arimidex/vitamin D/calcium on February 11, 2020 for 5 years History of lower extremity DVT Dyslipidemia Hypertension Type 2 diabetes mellitus Anxiety/depression Plan: Discussed with patient regarding her labs white blood count 7.1 hemoglobin 13.5 hematocrit 43.5 platelets 353,000 CMP within normal limits Clinically, patient doing well with no new signs symptoms, tolerating Arimidex well but with expected side effects e.g. occasionally hot flashes. Patient was also on vitamin D and calcium supplement for bone health but as per patient her calcium was elevated on routine lab done by her PMD calcium was discontinued. Her follow-up done today labs shows calcium in normal range. Patient also completed postlumpectomy radiation therapy on May 07, 2020 As for generalized weakness and fatigue is concerned, considering her weight, probably due to sleep apnea, will suggest sleep study as she may benefit from CPAP if sleep apnea is confirmed. We will continue with Arimidex 1 mg p.o. daily along with vitamin D and then she will return to clinic in 4 months with CBC CMP Signed By: Gucci Chapman M.D. <<Signature on File>>
== END 2020-06-24 05:53 | disposition home or self-care (01) ==
PROVIDERS: PCP Family Medicine; Visit Provider Internal Medicine Hematology & Oncology
DX: C50.812 Malignant neoplasm of overlapping sites of left female breast (principal); R53.1 Weakness; R53.83 Other fatigue; Z79.811 Long term (current) use of aromatase inhibitors; Z17.0 Estrogen receptor positive status [ER+]; E78.5 Hyperlipidemia, unspecified; I10 Essential (primary) hypertension; E11.9 Type 2 diabetes mellitus without complications; F41.8 Other specified anxiety disorders
CPT/HCPCS: 36415; 77336; 80053; 85025; 99214

== ENCOUNTER → 2020-06-26 11:15 | Outpatient (BNVA) | payer MEDICARE, SELFPAY | PROVIDERS: PCP Family Medicine; Visit Provider Surgery | DX: L98.9 Disorder of the skin and subcutaneous tissue, unspecified (principal) | CPT/HCPCS: 88305 ==

== ENCOUNTER 2020-10-22 11:17 | Outpatient (CLI) | payer MEDICARE, SELFPAY ==
[2020-10-22 12:39] LABS: Basophils # 0.1 10^3/uL (0.0-0.1); Eosinophils # 0.2 10^3/uL (0.0-0.8); Eosinophils % 2.4 %; Hematocrit 43.9 % (37.0-47.0); Hemoglobin 13.8 g/dL (11.5-15.3); Lymphocytes # 2.9 10^3/uL (0.8-4.8); Mean Corpuscular HGB Conc 31.4 g/dL (30.0-36.0); Mean Corpuscular Hemoglobin 27.6 pg (28.0-34.0); Mean Corpuscular Volume 87.8 fL (81-99); Mean Platelet Volume 9.7 fL (7.4-10.4); Monocytes # 0.6 10^3/uL (0.2-0.9); Neutrophils # 3.22 10^3/uL (1.8-7.7); Neutrophils % 46.3 %; Nucleated Red Blood Cells % 0 %; Platelet Count 364 10^3/cmm (130-400); Red Cell Distribution Width 13.7 % (12.1-15.1)
[2020-10-22 13:10] LABS: Alanine Aminotransferase 42 U/L (0-33); Albumin Level 4.2 g/dL (3.5-5.2); Alkaline Phosphatase 69 IU/L (35-105); Anion Gap 13.4 (5-19); Aspartate Amino Transferase 25 U/L (0-32); Blood Urea Nitrogen 18 mg/dL (8-23); Calcium 10.4 mg/dL (8.5-10.5); Carbon Dioxide 30 mmol/L (22-29); Chloride 100 mmol/L (98-107); Glomerular Filtration Rate 62.8 mL/min (90-130); Glucose 143 mg/dL (65-115); Osmolality Calculated 294 mOsm/kg (285-295); Potassium 3.4 mmol/L (3.5-5.1); Sodium 140 mmol/L (136-145); Total Bilirubin 0.3 mg/dL (0.15-1.2); Total Protein 7.2 g/dL (6.6-8.7)
--- NOTE | 2020-10-22 15:05 | ONC FU_ITS ---
Dr. Chapman follow up note Patient: Shannon Henderson Unit #: [id number]: 1955 Dicatated By: Gucci Chapman M.D.Date of Visit:Oct 22, 2020 Onc Med Follow-up/Prog Note History of Present Illness: Ms. Shannon Henderson, is a 65-year-old female who underwent mammogram for right breast palpable mass on December 18, 2019 and the impression was on the right side medial inferior breast mass was probably due to lipoma as no underlying mass was identified but there was incidental finding in the left breast there was a subcentimeter mass in the upper quadrant of left breast anterior mass measures 6 mm in the posterior mass measured 5 mm and contains central calcification. Patient underwent repeat mammogram/ultrasound on January 10, 2020 which confirmed benign lipoma right side and in left breast at 3 o'clock position, 2 cm from nipple is a hypoechoic mass measuring 6 x 7 x 7 mm subsequently patient underwent ultrasound-guided needle biopsy on January 23, 2020 which confirmed invasive carcinoma ER NE positive HER-2/neeraj negative with a Ki-67 14%. Patient was referred to surgery and underwent left breast lumpectomy on February 05, 2020 which showed residual tumor size 0.9 cm tumor is free of margin but approaches within 1 mm of superior margin. pT1b 3 left axillary sentinel lymph nodes were removed and showed no evidence of metastatic disease pN0 Patient tolerated procedure well Past medical history significant for anxiety/depression, controlled type 2 diabetes mellitus, DVT of lower extremity. Dyslipidemia. Essential hypertension. Gastroesophageal reflux disease. Osteoarthritis. Status post colonoscopy with polypectomy in 2017., History of hysterectomy. No history of smoking. Occasional alcohol use. Patient never had abnormal mammogram before. But last year she missed her follow-up mammogram, family history positive for paternal aunt with history of breast cancer. History of oral contraceptive for a few years. Patient had 3 pregnancies, 3 live births, 2 boys and 1 girl. No history of breast-feeding. Tolerating Arimidex well. Oncotype DX score testing was ordered, initially it was not done because of insufficient specimen, case was discussed with pathology again and another slide with 'sufficient' tissue was sent for testing and report came back again, Oncotype DX testing could not be performed due to insufficient specimen. Status post post lumpectomy radiation therapy from 2020-04-15 through 2020-05-13 Came for follow-up, denies any specific complaint except generalized weakness and fatigue and not getting enough sleep at night and usually sleeping during daytime. But no nausea or vomiting no fever chills, no new bony pains, no headaches, occasionally hot flashes otherwise tolerating Arimidex well Medications: Arimidex 1 Tablet (of 1 mg) Tablet Oral daily, Atorvastatin Calcium 1 Tablet (of 20 mg) Oral daily, Celecoxib 1 Capsule (of 200 mg) Oral daily, Cephalexin 1 Capsule (of 500 mg) Oral daily, Docusate Sodium 1 Tablet (of 100 mg) Oral b.i.d., Furosemide 1 Tablet (of 20 mg) Oral b.i.d., Januvia 1 Tablet (of 100 mg) Oral daily, Klor-Con 10 1 Tablet (of 10 meq) Tablet, controlled release Oral daily, Lisinopril-hydroCHLOROthiazide 1 Tablet (of 20-25 mg) Oral daily, LORazepam 1 Tablet (of 0.5 mg) Oral b.i.d., Meloxicam 1 Tablet (of 15 mg) Oral daily, metFORMIN HCl 1 Tablet (of 1000 mg) Oral b.i.d., Ondansetron HCl 1 Tablet (of 4 mg) Oral q 6 hours, PARoxetine HCl 1 Tablet (of 20 mg) Oral daily Allergies: No Known Allergies. Review of Systems: Review of Systems is not available for this patient. Vital Signs: Performed on Oct 22, 2020 13:47 Height - 64.00 in Weight - 240.8 lbs BSA - 2.12 sq.m BMI - 41.33 (HIGH) Temperature - 98.5 F Pulse - 89 /min Respiration - 18 /min BP - 146/77 mm(hg) (HIGH) O2 Sat - 93 % (LOW) Pain - 0 Fatigue - 6 Performance Status: 1 - No physically strenuous activity, but ambulatory and able to carry out light or sedentary work (e.g. office work, light house work). (ECOG) Physical Examination: Respiratory - Lungs are clear to auscultation, Cardiovascular - Regular rate and rhythm of heart, Gastrointestinal - Soft, bowel sounds present, Extremities - No visible edema or rash. Lab/Imaging: Test performed on Jun 24, 2020 12:31 Sodium 136 mmol/L Potassium 3.5 mmol/L Chloride 96 mmol/L CO2 30 mmol/L Anion Gap 13.5 BUN 21 mg/dL Creatinine 0.8 mg/dL Cr Clearance (Est) 121.18 mL/min eGFR 72.2 mL/min Glucose 163 mg/dL Osmolality - Calculated 289 mOsm/kg Calcium 10.1 mg/dL Protein, Total 7.3 g/dL Albumin 4.5 g/dL Globulin 2.8 g/dL Bilirubin, Total 0.3 mg/dL ALT (SGPT) 29 U/L AST (SGOT) 26 U/L Alkaline Phosphatase 70 IU/L WBC 7.1 10 3/uL RBC 5.01 10 6/uL HGB 13.5 g/dL HCT 43.5 % MCV 86.8 fL MCH 26.9 pg MCHC 31.0 g/dL RDW 14.4 % Platelet Count 353 10 3/cmm MPV 9.3 fL Neutrophils 3.35 10 3/uL Lymphocytes 3.1 10 3/uL Monocytes 0.5 10 3/uL Eosinophils 0.1 10 3/uL Basophils 0.1 10 3/uL Neutrophil % 47.1 % Lymphocyte % 43.5 % Monocyte % 6.8 % Eosinophil % 1.7 % Basophils % 0.8 % NRBC % 0 % 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, involving left breast status post ultrasound-guided biopsy done on January 23, 2020 followed by left breast lumpectomy with sentinel lymph node biopsy final pathology report showed 0.9 cm invasive tumor with clear margins but approaches within 1 mm of superior margin, no lymphovascular invasion seen pT1b, 0 out of 3 sentinel lymph node showed metastatic disease pN0 ER 95% positive, NE 99% positive, HER-2/neeraj negative, Ki-67 14% H, Started on Arimidex/vitamin D/calcium on February 11, 2020 for 5 years Status post postlumpectomy radiation therapy from 2020-04-15 through 2020-05-13 History of lower extremity DVT Dyslipidemia Hypertension Type 2 diabetes mellitus Anxiety/depression Plan: Discussed with patient regarding her labs white blood count 7 hemoglobin 13.8 hematocrit 43.9 platelets 364,000 CMP within normal limits except potassium 3.4, glucose 143 and ALT 42 Clinically, patient is doing well with no new signs symptom suggestive of recurrence of disease, tolerating her Arimidex well but with expected side effect e.g. occasionally hot flashes. We will continue with same As far as generalized weakness and fatigue is concerned could be due to sleep apnea considering her body weight, we will suggest PMD to consider sleep study to rule in sleep apnea as she may benefit from CPAP. Mild hypokalemia, patient is on diuretics on a regular basis along with potassium supplement, she was advised to take extra potassium supplement for 3 days and then she return to clinic in 4 months with CBC CMP Recent history of basal cell carcinoma involving right forehead just above eyebrow status post excision Signed By: Gucci Chapman M.D. <<Signature on File>>
== END 2020-10-22 11:18 | disposition home or self-care (01) ==
PROVIDERS: PCP Family Medicine; Visit Provider Internal Medicine Hematology & Oncology
DX: C50.812 Malignant neoplasm of overlapping sites of left female breast (principal); R53.83 Other fatigue; R53.1 Weakness; E87.6 Hypokalemia; E11.9 Type 2 diabetes mellitus without complications; E78.5 Hyperlipidemia, unspecified; I10 Essential (primary) hypertension; Z17.0 Estrogen receptor positive status [ER+]; Z79.811 Long term (current) use of aromatase inhibitors; Z85.828 Personal history of other malignant neoplasm of skin
CPT/HCPCS: 36415; 80053; 85025; 99214

== ENCOUNTER 2021-01-04 | Outpatient (CLI) | payer MEDICARE, SELFPAY | END 2021-01-04 00:01 | disposition home or self-care (01) | LOC: RADSHAW 12-21 10:07 | PROVIDERS: PCP Family Medicine; Visit Provider Family Medicine | DX: Z78.0 Asymptomatic menopausal state (principal); E11.9 Type 2 diabetes mellitus without complications; I10 Essential (primary) hypertension; E78.5 Hyperlipidemia, unspecified | CPT/HCPCS: 82306; 83036 ==

== ENCOUNTER → 2021-03-26 12:07 | Outpatient (BNVA) | payer OTHER, MEDICARE, SELFPAY | PROVIDERS: PCP Family Medicine; Visit Provider Family Medicine | DX: E55.9 Vitamin D deficiency, unspecified (principal) | CPT/HCPCS: 82306 ==

== ENCOUNTER → 2021-04-05 08:28 | Outpatient (BNVA) | payer OTHER, MEDICARE, SELFPAY | PROVIDERS: PCP Family Medicine; Visit Provider Family Medicine | DX: E11.9 Type 2 diabetes mellitus without complications (principal); E78.5 Hyperlipidemia, unspecified; I10 Essential (primary) hypertension; M79.642 Pain in left hand; M19.91 Primary osteoarthritis, unspecified site; F41.9 Anxiety disorder, unspecified | CPT/HCPCS: 80053; 80061; 82043; 83036; 85025 ==

== ENCOUNTER → 2021-04-23 11:26 | Outpatient (BNVA) | payer OTHER, MEDICARE, SELFPAY | PROVIDERS: PCP Family Medicine; Visit Provider Surgery | DX: Z11.52 Encounter for screening for COVID-19 (principal) | CPT/HCPCS: 87635 ==

== ENCOUNTER 2021-04-29 08:11 | Day surgery (SDC) | payer MEDICARE, SELFPAY ==
[2021-04-26 12:59] VITALS: BMI 34.5
[2021-04-29 08:36] VITALS: BP 129/87; PULSE 66; RESP 18; TEMP 36.2; O2SAT 96
[2021-04-29] MEDS: sodium chloride 0.9% 1,000 ML 30 ML IV (08:39)
[2021-04-29 08:47] LABS: Glucose Point of Care 117 mg/dL (70-110)
--- NOTE | 2021-04-29 08:49 | P.HP_ITS ---
Same Day Surgery H&P Indication for Procedure/HPI DATE OF PROCEDURE: April 29, 2021 CHIEF COMPLAINT/INDICATIONFOR SURGICAL PROCEDURE: colonoscopy PREOP DIAGNOSIS: screening colonoscopy PLANNED PROCEDRUE: Operation Date: 04/29/21 09:45 Proposed Procedures p Colonoscopy 90871 z86.010(Not Applicable) - Joey Vizcaino MD Medications/Allergies* Home Medications Medication Instructions Recorded Confirmed Type omega-3 fatty acids 1,000 mg 2,000 mg PO BID 08/17/19 04/29/21 History capsule anastrozole 1 mg tablet 1 mg PO DAILY 04/30/20 04/29/21 History Allergies/Adverse Reactions Allergy/AdvReac Type Severity Reaction Status Date / Time No Known Allergies Allergy Verified 04/29/21 08:33 Current Medications: Generic Name Dose Route Start Last Admin Trade Name Freq PRN Reason Stop Dose Admin Sodium Chloride 1,000 mls @ 30 mls/hr 04/29/21 08:45 04/29/21 08:39 Sodium Chloride 0.9% IV 04/30/21 08:44 30 mls/hr .Q24H RENEE Administration Pertinent History/Comorbid Conditions* Medical History (Updated 03/29/21 @ 07:32 by Lexi Granda DO) Anxiety Anxiety and depression Breast cancer, left Controlled type 2 diabetes mellitus, without long-term current use of insulin DVT of lower extremity (deep venous thrombosis) Dyslipidemia Essential (primary) hypertension GERD (gastroesophageal reflux disease) History of colon polyps Osteoarthritis Surgical History (Updated 04/06/20 @ 17:23 by Joey Vizcaino MD) H/O carpal tunnel repair H/O: hysterectomy History of cholecystectomy History of colonoscopy with polypectomy (~2016) Status post left breast lumpectomy (02/05/20) With sentinel lymph node biopsy Family History (Updated 09/13/19 @ 11:17 by Juhi Scanlon RN) Diabetes Mother COPD (chronic obstructive pulmonary disease) Father Cancer Sister colon cancer Hypertension Mother Denies family history of Anesthesia complication Bleeding disorder Social History Smoking and tobacco status: never smoked Second hand smoke exposure: No Alcohol intake: current Alcohol intake frequency: holidays/special occasions only Desire information about alcohol rehabilitation?: No Desire information about substance/drug rehabilitation?: No Adopted: No Caregiver/support person: Yes Lives independently: Yes Housing: House Marital status: Highest education level completed: High School Graduate service: No Current occupational status: retired Current occupational exposures/hazards: No Pets and animals: No History of recent travel: No Sexually active: No Current gender identity: Female Lacey/Mu-Ism: Anglican Special lacey needs: No Agree to transfusion: No Financial difficulty paying for basics: Decline to Answer Pertinent Exam Findings alert, oriented x 3 and regular rate & rhythm Recommendations Surgery/Procedure today Coding Level of Care Code Acute Underwriting Service Representative for Aisha Rubi
--- NOTE | 2021-04-29 08:52 | ANES.PREANE2 ---
Pre-Anesthetic Assessment Pre-Anesthetic Assessment: Height/Weight: Height 1.68 m Weight 97.069 kg Temp Pulse Resp BP Pulse Ox 97.1 F L 66 18 129/87 96 04/29/21 08:36 04/29/21 08:36 04/29/21 08:36 04/29/21 08:36 04/29/21 08:36 Preop Diagnosis: screening colonoscopy Proposed Procedure: Operation Date: 04/29/21 09:45 Proposed Procedures p Colonoscopy 05026 z86.010(Not Applicable) - Joey Vizcaino MD Was Beta Anjana taken within 24 hours: N/A Was Clonidine taken within 24 hours: N/A Last intake: Intake Last Liquid Date 04/28/21 Last Liquid Time 23:00 Last Solid Date 04/27/21 Social: Social History: No alcohol and No tobacco Exam: Pre-Anes Outpt Exam: alert, oriented x 3, clear to auscultation bilaterally and regular rate & rhythm Airway: Submandibular: WNL Cervical ROM: WNL MP: 2 Dentition: Full CV/HEM: CV/HEM: HTN Metabolic: Metabolic: DM, Hyperlipidemia and Morbid obesity Neuropsych: Neuropsych: Anxiety and Depression Anesthetic Plan: ASA status: 3 Anesthesia: MAC Risk of > 500 ml blood loss (7ml/kg in children): No Meds/Allergies Current Medications: Current Medications Generic Name Dose Route Start Last Admin Trade Name Freq PRN Reason Stop Dose Admin Sodium Chloride 1,000 mls @ 30 ml s/hr 04/29/21 08:45 04/29/21 08:39 Sodium Chloride 0.9% IV 04/30/21 08:44 30 mls/hr .Q24H RENEE Administration PFSH Anesthesia PFSH: Medical History Anxiety Anxiety and depression Breast cancer, left Controlled type 2 diabetes mellitus, without long-term current use of insulin DVT of lower extremity (deep venous thrombosis) Dyslipidemia Essential (primary) hypertension GERD (gastroesophageal reflux disease) History of colon polyps Osteoarthritis Surgical History H/O carpal tunnel repair H/O: hysterectomy History of cholecystectomy History of colonoscopy with polypectomy (~2016) Status post left breast lumpectomy (02/05/20) With sentinel lymph node biopsy Family History Sister Cancer colon cancer Mother Diabetes Hypertension Father COPD (chronic obstructive pulmonary disease) Denies family history of Anesthesia complication Bleeding disorder Social History Smoking and tobacco status: never smoked Second hand smoke exposure: No Alcohol intake: current Alcohol intake frequency: holidays/special occasions only Desire information about alcohol rehabilitation?: No Desire information about substance/drug rehabilitation?: No Adopted: No Caregiver/support person: Yes Lives independently: Yes Housing: House Marital status: Highest education level completed: High School Graduate service: No Current occupational status: retired Current occupational exposures/hazards: No Pets and animals: No History of recent travel: No Sexually active: No Current gender identity: Female Lacey/Gnosticist: Roman Catholic Special lacey needs: No Agree to transfusion: No Financial difficulty paying for basics: Decline to Answer Data Anesthesia Other Labs: Laboratory Results - last 48 hr 04/29/21 08:44 POC Glucose 117 H Cardiac Studies: No Data to Display
[2021-04-29 10:23] VITALS: BP 100/72; PULSE 63; RESP 16; TEMP 36.3; O2SAT 94
[2021-04-29 10:36] VITALS: BP 117/72; PULSE 65; RESP 18; O2SAT 94
--- NOTE | 2021-04-29 14:00 | ANE.PACU2 ---
Inpatient post-anesthesia follow up: Airway intact: Yes Vital signs: Temperature 97.4 F Pulse Rate 65 Respiratory Rate 18 Blood Pressure 117/72 Pulse Oximetry 94 Oxygen Delivery Me thod Room Air Oxygen Flow Rate 4 Fraction of Inspir ed Oxygen Hydration adequate: Yes Nausea and vomiting: No Pain level: 1 Mental status: Baseline
== END 2021-04-29 10:55 | disposition home or self-care (01) ==
PROVIDERS: PCP Family Medicine; Visit Provider Surgery
PROC: 0DJD8ZZ Inspection of Lower Intestinal Tract, Via Natural or Artificial Opening Endoscopic (ICD-10-PCS; CPT 45378; principal; 2021-04-29 09:45)
DX: Z12.11 Encounter for screening for malignant neoplasm of colon (principal); Z86.010 Personal history of colon polyps; K64.8 Other hemorrhoids; F41.9 Anxiety disorder, unspecified; F32.9 Major depressive disorder, single episode, unspecified; E78.5 Hyperlipidemia, unspecified; Z86.718 Personal history of other venous thrombosis and embolism; M19.90 Unspecified osteoarthritis, unspecified site; K64.9 Unspecified hemorrhoids; I10 Essential (primary) hypertension; E11.9 Type 2 diabetes mellitus without complications; E66.01 Morbid (severe) obesity due to excess calories; Z68.34 Body mass index [BMI] 34.0-34.9, adult
CPT/HCPCS: 36416; 82962; 96360; 96361; G0121; J2704; J7030

== ENCOUNTER → 2021-09-27 10:17 | Outpatient (BNVA) | payer OTHER, SELFPAY | PROVIDERS: PCP Family Medicine; Visit Provider Family Medicine | DX: E11.9 Type 2 diabetes mellitus without complications (principal) | CPT/HCPCS: 80053; 83036 ==

== ENCOUNTER → 2021-11-01 11:15 | Outpatient (BNVA) | payer OTHER, SELFPAY | PROVIDERS: PCP Family Medicine; Visit Provider Family Medicine | DX: E83.52 Hypercalcemia (principal) | CPT/HCPCS: 82310; 83970 ==

== ENCOUNTER → 2022-05-03 10:07 | Outpatient (BNVA) | payer OTHER, SELFPAY | PROVIDERS: PCP Family Medicine; Visit Provider Family Medicine | DX: I10 Essential (primary) hypertension (principal); E11.9 Type 2 diabetes mellitus without complications; E78.5 Hyperlipidemia, unspecified | CPT/HCPCS: 80053; 80061; 82043; 83036; 85025 ==

== ENCOUNTER 2022-05-10 07:50 | Oncology outpatient (recurring) (ONCR) | payer OTHER, SELFPAY | END 2022-05-13 23:59 | disposition home or self-care (01) | PROVIDERS: PCP Family Medicine; Visit Provider Internal Medicine Hematology & Oncology | DX: Z53.9 Procedure and treatment not carried out, unspecified reason (principal) ==

== ENCOUNTER 2022-06-14 09:32 | Outpatient (CLI) | payer OTHER, SELFPAY ==
--- NOTE | 2022-06-14 09:42 | MM_ITS ---
WS: [id number] DIAGNOSTIC BILATERAL DIGITAL BREAST TOMOSYNTHESIS MAMMOGRAPHY WITH CAD HISTORY: follow up; HX OF BREAST CA COMPARISON: 01/10/2020, 12/18/2019, 02/05/2020 and 01/10/2020 TECHNIQUE: Bilateral craniocaudad, mediolateral oblique, and mediolateral views are submitted with to mosynthesis and SM. Computer aided detection utilized. Breast composition: There are scattered areas of fibroglandular density. Postsurgical changes and cli ps are noted in the anterior LEFT breast posterior to the nipple. Postsurgical changes with an area o f fat necrosis. No recurrent mass. No suspicious calcification. Benign calcifications in the RIGHT br east. MM/[place] [address] IMPRESSION: BI-RADS: 2-Benign FOLLOW UP: 1 Year Follow-up
== END 2022-06-14 09:33 | disposition home or self-care (01) ==
LOC: RAD 09:35
PROVIDERS: PCP Family Medicine; Visit Provider Internal Medicine Hematology & Oncology
DX: Z85.3 Personal history of malignant neoplasm of breast (principal)
CPT/HCPCS: G0279; 77062

== ENCOUNTER → 2022-11-23 10:24 | Outpatient (BNVA) | payer OTHER, SELFPAY | PROVIDERS: PCP Family Medicine; Referring Provider Family Medicine; Visit Provider Specialist | DX: M65.321 Trigger finger, right index finger (principal) | CPT/HCPCS: 73130 ==

== ENCOUNTER 2022-12-23 06:14 | Day surgery (SDC) | payer OTHER, SELFPAY ==
[2022-12-22 08:17] VITALS: BMI 36.6
[2022-12-23] VITALS (7 sets, daily range): BP systolic 128–164; BP diastolic 77–91; PULSE 72–90; RESP 16–18; TEMP 36.3–36.4; O2SAT 91–93
[2022-12-23] MEDS: CELEcoxib 200 mg Capsule 400 MG PO (06:43)
[2022-12-23 06:47] LABS: Glucose Point of Care 125 mg/dL (70-110)
--- NOTE | 2022-12-23 06:48 | W.PM.OPSUD ---
Surgery/Procedure H&P Update DATE OF PROCEDURE: December 23, 2022 DATE H&P PERFORMED: 11/23/22 H&P UPDATE INFORMATION: I have reviewed H&P completed within last 30 days, I have examined patient prior to procedure, No changes to prior documentation and H&P is in [facility] EMR on date indicated PREOP DIAGNOSIS: Triggering right index finger PLANNED PROCEDURE: Operation Date: 12/23/22 07:45 Proposed Procedures p RIGHT INDEX TRIGGER FINGER RELEASE [id number],M65.30(Right) - Darshana Palmer MD Related Problem List Diagnoses (1) Trigger finger, right index finger:
[2022-12-23] MEDS: acetaminophen 1,000 MG/100 ML PIGGYBACK 400 MG IV (07:03)
[2022-12-23] MEDS: sodium chloride 0.9% 1,000 ML 30 ML IV (07:03)
--- NOTE | 2022-12-23 07:15 | ANES.PREANE2 ---
Pre-Anesthetic Assessment Height/Weight: Height 1.65 m Weight 99.79 kg Temp Pulse Resp BP Pulse Ox O2 Del Method 97.5 F L 72 17 128/77 93 Room Air 12/23/22 06:29 12/23/22 06:29 12/23/22 06:29 12/23/22 06:29 12/23/22 06:29 12/23/22 06:29 Preop Diagnosis: Triggering right index finger Operation Date: 12/23/22 07:45 Proposed Procedures p RIGHT INDEX TRIGGER FINGER RELEASE [id number],M65.30(Right) - Darshana Palmer MD Familial anesthetic complications: none Was Beta Anjana taken within 24 hours: N/A Was Clonidine taken within 24 hours: N/A Last intake: Intake Last Liquid Date 12/22/22 Last Liquid Time 23:50 Last Solid Date 12/22/22 Last Solid Time 18:00 Social No alcohol and No tobacco Exam alert, oriented x 3, clear to auscultation bilaterally and regular rate & rhythm Airway Submandibular: within normal limits Cervical ROM: within normal limits Mallampati: Class II Dentition: chipped CV/HEM Hypertension GI Gastroesophageal Reflux Disease Metabolic Diabetes Mellitus, Hyperlipidemia and Morbid Obesity [facility] [place] Osteoarthritis/DJD Neuropsych Anxiety and Depression Anesthetic Plan ASA status: 3 Anesthesia: Choice Medications/Allergies Home Medications Medication Instructions Recorded Confirmed Last Taken Type anastrozole 1 mg tablet (Arimidex) 1 mg PO DAILY #90 tabs 05/10/22 12/22/22 12/22/22 Rx paroxetine HCl 40 mg tablet See Rx Instructions .Route 09/27/22 12/22/22 12/22/22 Rx .COMPLEX #90 tabs atorvastatin 20 mg tablet See Rx Instructions .Route 10/25/22 12/22/22 12/22/22 Rx .COMPLEX #90 tabs furosemide 40 mg tablet See Rx Instructions .Route 10/25/22 12/22/22 12/22/22 Rx .COMPLEX #180 tabs lisinopril 20 See Rx Instructions .Route 10/25/22 12/22/22 12/22/22 Rx mg-hydrochlorothiazide 25 mg tablet .COMPLEX #90 tabs metformin 1,000 mg tablet See Rx Instructions .Route 10/25/22 12/22/22 12/22/22 Rx .COMPLEX #180 tabs potassium chloride 10 mEq See Rx Instructions .Route 10/25/22 12/22/22 12/21/22 Rx tablet,extended release .COMPLEX #120 tabs sitagliptin phosphate 100 mg See Rx Instructions .Route 10/25/22 12/22/22 12/22/22 Rx tablet (Januvia) .COMPLEX #90 tabs celecoxib 200 mg capsule (Celebrex) 200 mg PO .once daily #90 caps 12/19/22 12/22/22 12/22/22 Rx lorazepam 0.5 mg tablet 0.5 mg PO BID PRN anxiety #180 tabs 12/20/22 12/22/22 12/21/22 Rx Allergies Allergy/AdvReac Type Severity Reaction Status Date / Time No Known Allergies Allergy Verified 12/23/22 06:28 Current Medications Generic Name Dose Route Start Last Admin Trade Name Freq PRN Reason Stop Dose Admin Sodium Chloride 1,000 mls @ 30 mls/hr 12/23/22 06:30 12/23/22 07:03 Sodium Chloride 0.9% IV 12/24/22 06:29 30 mls/hr .Q24H RENEE Administration PFSH Anesthesia Medical History Anxiety Anxiety and depression Breast cancer, left Controlled type 2 diabetes mellitus, without long-term current use of insulin DVT of lower extremity (deep venous thrombosis) Dyslipidemia Essential (primary) hypertension GERD (gastroesophageal reflux disease) History of colon polyps Osteoarthritis Surgical History H/O carpal tunnel repair H/O: hysterectomy History of cholecystectomy History of colonoscopy with polypectomy (04/29/21) normal Status post left breast lumpectomy (02/05/20) With sentinel lymph node biopsy Family History Sister Cancer colon cancer Mother Diabetes Hypertension Father COPD (chronic obstructive pulmonary disease) Denies family history of Anesthesia complication Bleeding disorder Social History Smoking and tobacco status: never smoked Second hand smoke exposure: No Alcohol intake: current Alcohol intake frequency: holidays/special occasions only Desire information about alcohol rehabilitation?: No Substance/Drug Use: never Desire information about substance/drug rehabilitation?: No Adopted: No Caregiver/support person: Yes Lives independently: Yes Housing: House Marital status: Single Highest education level completed: High School Graduate service: No Current occupational status: retired Current occupational exposures/hazards: No Pets and animals: No Sexually active: No Do you think of yourself as: Straight/Heterosexual Current gender identity: Female Lacey/Adventism: Gnosticism Special lacey needs: No Agree to transfusion: No Financial difficulty paying for basics: Decline to Answer Data Anesthesia 12/23/22 06:55 Cardiac Studies: No Data to Display
[2022-12-23 07:23] LABS: Blood Urea Nitrogen 21 mg/dL (8-23); Calcium 7.8 mg/dL (8.5-10.5); Carbon Dioxide 25 mmol/L (22-29); Chloride 109 mmol/L (98-107); Glomerular Filtration Rate 99.7 mL/min (90-130); Glucose 108 mg/dL (65-115); Osmolality Calculated 300 mOsm/kg (285-295); Sodium 143 mmol/L (136-145)
[2022-12-23 07:25] LABS: Anion Gap 12.1 (5-19); Potassium 3.1 mmol/L (3.5-5.1)
[2022-12-23] MEDS: ceFAZolin 2,000 MG in sodium chloride 0.9% (plus) 50 ML 100 MG IV (08:11)
--- NOTE | 2022-12-23 09:06 | PM.OP ---
Operative Report Date of procedure: December 23, 2022 Pre-op diagnosis: Triggering right index finger Post-op diagnosis: Triggering right index finger Post-op findings: Fibrous thickening about the index finger tendon and A1 tarsha Procedure done: Trigger finger release right index finger Pathology: none sent Surgeon: Darshana Palmer [employer]: None Anesthesia: General (Per LMA, ASA 3) Estimated blood loss (mL): 1 Tourniquet time (min): 18 (At 250 mmHg) IV fluids (mL): 900 Urine output (mL): 0 (No Summers) Complications: None Findings: Significant fibrous thickening about the flexor tendon as well as thickening of the A1 tarsha Condition: stable Disposition: PACU (Then return to same-day surgery for discharge to home) Brief History: Shannon Henderson is a 67 year old female patient who is here today for trigger finger release right index finger. Preoperatively, the patient stated pain is 0 at rest and 10 with movement.? Patient states pain has been present for over a year but has been getting worse over the past couple of months., Consents were signed and questions were answered. The patient was prepared for trigger finger release. Procedure: Patient was brought to the operating theater. She was placed on the operating room table. Patient had general anesthesia administered per LMA, ASA 3. A tourniquet was placed high on the arm and was elevated to 250 mmHg following exsanguination of the arm. Tourniquet time was 18 minutes. Surgical pause was performed prior to commencement of the surgical procedure. At the time of the surgical pause we identified the site and side of surgery. We also identified the patient's identity and appropriate administration of IV antibiotics. Following the surgical pause, an incision was made along the distal palmar crease beneath the index finger centering over the metacarpal phalangeal joint. Dissection continued through the skin to the subcutaneous tissues using a scalpel. Blunt dissection was then utilized to spread soft tissues and allow access to the A1 tarsha. It was then incised longitudinally and sharply using a knife. This was accomplished without difficulty and atraumatically. Once the A1 tarsha was released, tendons were brought up out of the wound and evaluated. There were no gross masses on the tendons, but there was significantly thickened tenosynovium which was incised longitudinally proximal to the A1 tarsha. Tendons were subsequently returned to normal position. We then irrigated the wound and subsequently closed it with 3-0 nylon with an interrupted mattress type suture. Following closure of the wound, the wound was injected with local anesthetic into the subcutaneous tissues. Sterile dressing was then placed consisting of Dermabond, OpSite, fluffed fluffs, sterile soft roll, and an Bubba wrap. The patient was returned to recovery in satisfactory condition. She will be discharged home to follow-up with me in the office. There were no complications and no specimens. Related Problem List Diagnoses (1) Trigger finger, right index finger:
--- NOTE | 2022-12-23 14:30 | ANE.PACU2 ---
Inpatient post-anesthesia follow up: Airway intact: Yes Vital signs: Temperature 97.3 F Pulse Rate 88 Respiratory Rate 18 Blood Pressure 164/91 Pulse Oximetry 91 Oxygen Delivery Me thod Room Air Oxygen Flow Rate Fraction of Inspir ed Oxygen Hydration adequate: Yes Nausea and vomiting: No Pain level: 2 Mental status: Baseline
== END 2022-12-23 10:15 | disposition home or self-care (01) ==
PROVIDERS: Anesthesiology; PCP Family Medicine; Visit Provider Specialist
PROC: (CPT 26055; principal; 2022-12-23 07:45)
DX: M65.321 Trigger finger, right index finger (principal); K21.9 Gastro-esophageal reflux disease without esophagitis; E11.9 Type 2 diabetes mellitus without complications; E78.5 Hyperlipidemia, unspecified; E66.01 Morbid (severe) obesity due to excess calories; Z68.36 Body mass index [BMI] 36.0-36.9, adult; Z79.84 Long term (current) use of oral hypoglycemic drugs; F41.9 Anxiety disorder, unspecified; F32.A Depression, unspecified
CPT/HCPCS: 26055; 36415; 36416; 80048; 82962; J0131; J0690; J1100; J1885; J2405; J2704; J3010; J3490; J7030

== ENCOUNTER → 2023-03-02 14:13 | Outpatient (BNVA) | payer OTHER, SELFPAY | PROVIDERS: PCP Family Medicine; Visit Provider Family Medicine | DX: E11.9 Type 2 diabetes mellitus without complications (principal) | CPT/HCPCS: 80053; 83036 ==

== ENCOUNTER → 2023-04-20 14:53 | Outpatient (BNVA) | payer OTHER, SELFPAY | PROVIDERS: PCP Family Medicine; Visit Provider Family Medicine | DX: I10 Essential (primary) hypertension (principal); E78.5 Hyperlipidemia, unspecified | CPT/HCPCS: 80048; 80061 ==

== ENCOUNTER → 2023-04-25 08:50 | Outpatient (BNVA) | payer OTHER, SELFPAY | PROVIDERS: PCP Family Medicine; Visit Provider Internal Medicine | DX: E21.3 Hyperparathyroidism, unspecified (principal); N18.9 Chronic kidney disease, unspecified; Z13.820 Encounter for screening for osteoporosis | CPT/HCPCS: 36415; 82310; 83970 ==

== ENCOUNTER 2023-05-12 13:52 | Outpatient (CLI) | payer MEDICARE, MEDICAID, SELFPAY ==
--- NOTE | 2023-05-12 14:00 | XR_ITS ---
WS: [id number] SCREENING DEXA SCAN [employer] CLINICAL INFORMATION: hyperparathyroidism COMPARISON: None. FINDINGS: The L1-L4 bone mineral density measures 0.777 g/cm2. This corresponds to a T score score of -3.4 and Z score of -2.9. Left femoral neck bone mineral density measures 0.873 g/cm2. This corresponds to a T score of -1.1 an d Z score of -0.6. Right femoral neck bone mineral density measures 0.932 g/cm2. This corresponds to a T score -0.6of an d Z score of -0.1. Mean femoral neck bone mineral density measures 0.903 g/cm2. This corresponds to a T score of -0.8 an d Z score of -0.3. IMPRESSION: Osteoporosis lumbar spine. Normal bone mineralization femoral necks approaching osteopenia. Patient's FRAX calculated 10 year probability for major osteoporotic fracture is 10.6% and osteoporo tic hip fracture is 1.8%.
== END 2023-05-12 13:53 | disposition home or self-care (01) ==
PROVIDERS: PCP Family Medicine; Visit Provider Internal Medicine
DX: E21.3 Hyperparathyroidism, unspecified (principal); N18.9 Chronic kidney disease, unspecified; M81.8 Other osteoporosis without current pathological fracture
CPT/HCPCS: 77080

== ENCOUNTER 2023-06-01 09:11 | Outpatient (CLI) | payer MEDICARE, MEDICAID, SELFPAY ==
--- NOTE | 2023-06-01 08:30 | NM_ITS ---
WS: [email or web address] EXAMINATION: NM parathyroid [id number] ORDER DATE: 06/01/2023 8:30 AM COMPARISON: None HISTORY: Hyperparathyroidism TECHNIQUE: Parathyroid scintigraphy with 17.9 of technetium 99m administered. AP and oblique views obtained with and without chin and suprasternal notch markers. Initial and 2 hour delayed imagi ng acquired. FINDINGS: Normal initial thyroid and salivary gland uptake. Enlarged LEFT thyroid lobe. This can be further foster luated with ultrasound. No significant retention on the delayed images to indicate parathyroid adenom a. No evidence of parathyroid adenoma. IMPRESSION: 1. No evidence of parathyroid adenoma. 2. Enlarged LEFT thyroid lobe. This can be further evaluated with thyroid ultrasound.
== END 2023-06-01 09:12 | disposition home or self-care (01) ==
LOC: RAD 09:11
PROVIDERS: PCP Family Medicine; Visit Provider Internal Medicine
DX: E21.3 Hyperparathyroidism, unspecified (principal)
CPT/HCPCS: 78070; 99214; A9500

== ENCOUNTER → 2024-03-08 10:29 | Outpatient (BNVA) | payer MEDICAID, SELFPAY | PROVIDERS: PCP Family Medicine | DX: E78.5 Hyperlipidemia, unspecified (principal); E11.9 Type 2 diabetes mellitus without complications; E55.9 Vitamin D deficiency, unspecified; E87.6 Hypokalemia | CPT/HCPCS: 80053; 80061; 82306; 83036; 85025 ==

== ENCOUNTER → 2024-08-30 10:50 | Outpatient (BNVA) | payer MEDICARE, MEDICAID, SELFPAY | DX: E78.5 Hyperlipidemia, unspecified (principal); E11.9 Type 2 diabetes mellitus without complications; E87.6 Hypokalemia | CPT/HCPCS: 80053; 80061; 83036 ==

== ENCOUNTER → 2024-11-01 10:14 | Outpatient (BNVA) | payer MEDICARE, MEDICAID, SELFPAY | PROVIDERS: PCP Family Medicine; Visit Provider Family Medicine | DX: E11.9 Type 2 diabetes mellitus without complications (principal); E55.9 Vitamin D deficiency, unspecified; E83.52 Hypercalcemia; R41.3 Other amnesia | CPT/HCPCS: 80053; 82043; 82306; 82310; 83970 ==

== ENCOUNTER → 2025-01-09 14:43 | Outpatient (BNVA) | payer MEDICARE, MEDICAID, SELFPAY | PROVIDERS: PCP Family Medicine; Visit Provider Family Medicine | DX: E11.9 Type 2 diabetes mellitus without complications (principal); R41.3 Other amnesia | CPT/HCPCS: 80053; 82607; 83036; 84443 ==

== ENCOUNTER 2025-01-16 14:59 | Outpatient (CLI) | payer OTHER, SELFPAY ==
--- NOTE | 2025-01-16 15:00 | MM_ITS ---
WS: [id number] BILATERAL 3D TOMOSYNTHESIS DIGITAL DIAGNOSTIC MAMMOGRAPHY WITH CAD CLINICAL INFORMATION: history Breast CA HISTORY: LEFT breast cancer COMPARISON: 2021 TECHNIQUE: Bilateral CC, MLO, and ML views. FINDINGS: Scattered fibroglandular densities bilaterally. Post surgical clips LEFT breast. Incidental punctate calcifications LEFT breast. Lumpectomy changes LEFT breast. No suspicious focal mass, asymmetry, calcifications, or architectural distortion. No evidence of malignancy. MM/MM diag tomosynthesis [id number] IMPRESSION: DENSITY: There are scattered areas of fibroglandular density. BI-RADS: 2 - Benign. FOLLOW UP: 1 Year Follow-up Recommend return to annual diagnostic mammography.
== END 2025-01-16 15:00 | disposition home or self-care (01) ==
LOC: RAD 15:02
PROVIDERS: PCP Family Medicine; Visit Provider Family Medicine
DX: C50.912 Malignant neoplasm of unspecified site of left female breast (principal); R92.323 Mammographic fibroglandular density, bilateral breasts; R92.1 Mammographic calcification found on diagnostic imaging of breast; Z98.890 Other specified postprocedural states
CPT/HCPCS: 77062; G0279

== ENCOUNTER → 2025-01-17 11:43 | Outpatient (BNVA) | payer MEDICARE, SELFPAY | PROVIDERS: PCP Family Medicine; Visit Provider Internal Medicine | DX: E21.3 Hyperparathyroidism, unspecified (principal); E55.9 Vitamin D deficiency, unspecified; N18.31 Chronic kidney disease, stage 3a | CPT/HCPCS: 99214 ==

== ENCOUNTER → 2025-04-01 15:53 | Outpatient (BNVA) | payer MEDICARE, SELFPAY | PROVIDERS: PCP Family Medicine; Visit Provider Family Medicine | DX: E87.6 Hypokalemia (principal) | CPT/HCPCS: 80048 ==

== ENCOUNTER → 2025-05-08 09:23 | Outpatient (BNVA) | payer MEDICARE, SELFPAY | PROVIDERS: PCP Family Medicine; Visit Provider Internal Medicine | DX: E11.9 Type 2 diabetes mellitus without complications (principal); E21.3 Hyperparathyroidism, unspecified; N18.31 Chronic kidney disease, stage 3a; M81.0 Age-related osteoporosis without current pathological fracture; E55.9 Vitamin D deficiency, unspecified; Z98.890 Other specified postprocedural states | CPT/HCPCS: 36415; 80053; 82310; 83970; 99214 ==

== ENCOUNTER 2025-05-22 13:45 | Outpatient (CLI) | payer MEDICARE, SELFPAY ==
[2025-05-22 14:38] LABS: Anion Gap 18.5 (5-19); Blood Urea Nitrogen 25 mg/dL (8-23); Calcium 9.6 mg/dL (8.5-10.5); Carbon Dioxide 26 mmol/L (22-29); Chloride 99 mmol/L (98-107); Glucose 212 mg/dL (65-115); Osmolality Calculated 301 mOsm/kg (285-295); Potassium 3.5 mmol/L (3.5-5.1); Sodium 140 mmol/L (136-145)
== END 2025-05-22 13:46 | disposition home or self-care (01) ==
LOC: LAB 13:47
PROVIDERS: PCP Family Medicine; Visit Provider Internal Medicine
DX: Z86.39 Personal history of other endocrine, nutritional and metabolic disease (principal)
CPT/HCPCS: 36415; 80048

== ENCOUNTER 2025-05-29 13:56 | Outpatient (CLI) | payer MEDICARE, SELFPAY ==
--- NOTE | 2025-05-29 14:00 | XR_ITS ---
WS: [id number] DEXA (DUAL ENERGY X-RAY ABSORPTIOMETRY) Bone mineral density was performed using a [employer] machine. HISTORY: see below COMPARISON: 05/12/2023 Lumbar spine BMD (L1-L4): 0.871 g/cm2 T score: -2.6 Z score: -2.0 Total hip BMD: Left: 0.856 g/cm2. T score: -1.2 Z score: -0.5 Right: 0.923 g/cm2. T score: -0.7 Z score: 0.0 10 year probability of a major osteoporotic fracture is 9.9%. Compared to the prior study from 05/12/2023. Lumbar spine bone mineral density has increased by 12.1%. Bilateral hips bone mineral density has decreased by 1.6%. XR/XR DEXA axial skeleton* [id number] IMPRESSION: OSTEOPOROSIS based upon the WHO classification for females. Significant increase in bone mineral density within the lumbar spine since the prior study. No significant change in the hips.
== END 2025-05-29 13:57 | disposition home or self-care (01) ==
LOC: RAD 13:58
PROVIDERS: PCP Family Medicine; Visit Provider Internal Medicine
DX: Z13.820 Encounter for screening for osteoporosis (principal); M81.8 Other osteoporosis without current pathological fracture
CPT/HCPCS: 77080